=== PATIENT | male | born 1955 | race Caucasian/White ===

== ENCOUNTER 2016-08-06 14:52 | Emergency (ER) | payer OTHER ==
--- NOTE | 2016-08-06 15:40 | DIAGNOSTIC IMAGING REPORT ---
PROCEDURE: CT HEAD WITHOUT CONTRAST INDICATION: TRAUMA/INJURY TECHNIQUE: Axial CT images were acquired through the head. Coronal and sagittal reformations were created. COMPARISON: None. FINDINGS: No intracranial hemorrhage or extraaxial fluid collections. Ventricles are normal in size, shape and position. There is no mass, mass effect or midline shift. The salguero-white matter differentiation is normal. There is no edema. The calvarium is intact. The paranasal sinuses and mastoid air cells are normally aerated. The extracranial soft tissues and orbits are normal. IMPRESSION: 1. No CT evidence of acute intracranial process. 2. Findings discussed with Jodi at 03:[address] scans at this facility use dose modulation, iterative reconstruction, and/or weight-based dosing when appropriate to reduce radiation dose to as low as reasonably achievable.
--- NOTE | 2016-08-06 15:43 | DIAGNOSTIC IMAGING REPORT ---
PROCEDURE: XR CHEST 2 VIEW INDICATION: CHEST PAIN TECHNIQUE: PA and lateral views. COMPARISON: None. FINDINGS: Lungs are clear. Heart and mediastinum are normal. Thorax is normal. IMPRESSION: 1. Negative chest.
--- NOTE | 2016-08-06 15:59 | DIAGNOSTIC IMAGING REPORT ---
PROCEDURE: XR CERVICAL SPINE 2 OR 3 VIEW INDICATION: NECK PAIN TECHNIQUE: Three views. COMPARISON: None. FINDINGS: There is spondylosis at C 5-6 and C6-7. There is a large posterior osteophytic ridge at C 05/06. No evidence of an acute process or fracture. IMPRESSION: 1. Spondylosis C5-6
--- NOTE | 2016-08-06 17:21 | ED ORDER SUMMARY ---
..... Patient: AISLINN HANSEN OrderSheet [facility] VisitID: [id number] [place] [address] 60y, M Registration Date/Time: 08/06/2016 ORDER SHEET Weight: 85.7 kg (stated) Allergies: None GENERAL ORDERS: CT Head wo Cont Urgent (15:08/06/2016 EKoroleva P.A.-C) (Ack 15:06 LMuller) (15:17 EHassan R.N.) Cervical Spine 2 or 3V Urgent (15:05 08/06/2016 EKoroleva P.A.-C) (Ack 15:06 LMuller) (15:17 EHassan R.N.) Chest 2V Urgent (15:08/06/2016 EKoroleva P.A.-C) (Ack 15:07 LMuller) (15:17 EHassan R.N.) Financial Aid Advisor (Continuous) (15:06 08/06/2016 EKoroleva P.A.-C) (Ack 15:07 LMuller) (15:17 EHassan R.N.) PT with INR Urgent (15:06 08/06/2016 EKoroleva P.A.-C) (Ack 15:07 LMuller) (15:17 EHassan R.N.) PTT Urgent (15:08/06/2016 EKoroleva P.A.-C) (Ack 15:07 LMuller) (15:17 EHassan R.N.) Cardiac Panel Stat (15:06 08/06/2016 EKoroleva P.A.-C) (Ack 15:07 LMuller) (15:17 EHassan R.N.) EKG - ER Stat (15:08/06/2016 EKoroleva P.A.-C) (Ack 15:07 LMuller) (15:17 EHassan R.N.) Vitals - Orthostatic (16:59 08/06/2016 EKoroleva P.A.-C) (18:24 EHassan R.N.) MEDICATION ORDERS: Tdap IM 0.5 mL (NOW, per protocol) (15:06 08/06/2016 Carl Quezada) (15:49 Doc Coronado) IV FLUIDS: IV Saline Lock (15:08/06/2016 Carl Quezada) (15:47 Doc Coronado) ORDER SHEET NOTES: [Electronically signed by Gloria Zapata P.A.-C (18:08/06/2016)] [Electronically signed by Gracy Madison R.N. (18:08/06/2016)] [Electronically locked/signed by Gracy Madison R.N. (18:08/06/2016)]
--- NOTE | 2016-08-06 17:21 | ED NURSING NOTES ---
Clinical Report - Nurses [facility] [address] [place] [address] 08/06/2016 14:53 Patient: AISLINN HANSEN TRIAGE Triage time 1500 PM. Acuity: LEVEL 2. Chief Complaint: INJURY TO NOSE. Alert. No acute distress. SEPSIS SCREEN: Sepsis Screen. Negative (no infection suspected/documented). --15:20 Gracy Madison R.N. 15:00 08/06/16. BP: 182/101. HR: 95. RR: 15. O2 saturation: 94% on room air. Temp: 98 F (oral). Pain level now: 4/10. Additional comments: right knee pain. --15:20 Gracy Madison R.N. Weight: 85.7 kg stated. Height/Length: 72 inches Per Patient. BMI: 25.6. --15:08 Gracy Madison R.N. Medications Depakote Oral 2000 mg, at bedtime. Neurontin Oral 600 mg, 2x a day. Propranolol HCl 80 mg, daily. --15:04 Gracy Madison R.N. The following entry was struck by Gracy Madison R.N., 15:14 (08/06/16) Reason - other. <<STRICKEN ENTRY-- Glimepiride Oral 4 mg, bid. --15:04 Gracy Madison R.N. --END STRIKE>> The following entry was struck by Gracy Madison R.N., 15:13 (08/06/16) Reason - other. <<STRICKEN ENTRY-- MetFORMIN HCl Oral 1000 mg, 2x a day. --15:04 Gracy Madison R.N. --END STRIKE>> The following entry was struck by Gracy Madison R.N., 15:13 (08/06/16) Reason - other. <<STRICKEN ENTRY-- Hydrocodone-Acetaminophen Oral 5 mg, 5 times aday. --15:04 Gracy Madison R.N. --END STRIKE>>. Medication/allergy information source: the patient. --15:20 Gracy Madison R.N. Allergies None. --15:04 Gracy Madison R.N. History Arrived by EMS, and being carried ([place]). Historian: patient. ( Pt arrived via EMS, according to pt he was walking on trail and felt weak and fell, denies LOC, does admit to right knee pain, and nose pain (bridge of nose with a laceration)). This occurred today. Occurred ([place]). Mechanism of injury: fell. No loss of consciousness. No headache or neck pain. Treatment PHARMACY AFFAIRS ASSISTANT: None. EMS report reviewed. See report. Finger stick glucose performed (124). BP: 162/ 102 R arm (reg adult cuff). HR: 106 regular. RR: 18 regular. O2 saturation: 100 % room air. Upon arrival patient awake. bus monitor and O2 sat monitor in place. No medications given. PAST MEDICAL HX: Tetanus status: up-to-date. Immunizations: up-to-date. SOCIAL HX: Never smoker. No alcohol use or drug use. No infectious disease exposure. ABUSE ASSESSMENT: No report of abuse. SELF HARM ASSESSMENT: A self harm assessment was performed. The patient answered "no" to the question "Do you have thoughts of harming or killing yourself?" and "Have you recently had thoughts about harming or killing others?". FALL RISK ASSESSMENT: Fall risk assessment completed. No fall risk identified. NUTRITIONAL RISK ASSESSMENT: The nutritional risk assessment revealed no deficiencies. FUNCTIONAL ASSESSMENT: Functional assessment: no impairments noted. LEARNING NEEDS ASSESSMENT: The learning needs assessment revealed no barriers. SKIN INTEGRITY ASSESSMENT: Skin integrity risk assessment completed. No skin integrity risk identified. --15:20 Gracy Madison R.N. PROBLEMS: Laceration. Hypertension. Immunizations. Bipolar Disorder. Diabetes Mellitus. --15:04 Gracy Madison R.N. ADDITIONAL SURGERIES: Eye surgery. Rhinoplasty. --15:04 Gracy Madison R.N. Interventions ID band on patient. --15:20 Gracy Madison R.N. PHYSICAL ASSESSMENT GENERAL / NEURO / PSYCH: Alert. Oriented X 4. Appears in no acute distress. HEENT: Pupils equal, round and reactive to light. Nasal injury: superficial 0.5 cm laceration with controlled bleeding involving the bridge of the nose. No septal hematoma or deformity. Nose: tenderness, swelling and 0.5 cm laceration. No deformity. Mouth within normal limits upon inspection. Voice within normal limits. Posterior neck: tenderness. Limited ROM secondary to pain. No deformity. Mucous membranes are pink. RESPIRATORY: Respirations not labored. CVS: Capillary refill less than 2 seconds. BACK: No neck or back tenderness. ROM normal to the neck and back. SKIN: Skin is warm and dry. --15:23 Gracy Madison R.N. NURSING PROGRESS NOTES Cardiac rhythm: normal sinus rhythm. The initial plan of care for this patient has been created This plan of care was discussed with the patient. Pulse oximeter applied. Patient gowned. Warming measures: blanket applied. Reassurance given and given. Two patient identifiers checked. Call light placed in reach. Side rails up x 2. Bed placed in lowest position. Brakes of bed on. Brakes of chair on. --15:26 Gracy Madison R.N. 15:15 08/06/16. BP: 152/100 (regular adult cuff) taken on the left arm, via an automated monitor, while lying. HR: 89 (regular and normal rate). RR: 16 (regular and unlabored). O2 saturation: 95% on room air. Pain level now: 09/20. --15:26 Gracy Madison R.N. Patient transported to radiology and CT by stretcher. (0040). --15:30 Gracy Madiosn R.N. 15:47 08/06/2016 Site #1 started via IV in the right forearm with an 20g angiocath; one attempt. Blood drawn: rainbow set. Labeled in the presence of the patient and sent to the lab. Saline lock flushed with 10 mL saline. --15:47 Gracy Madison R.N. 15:47 08/06/2016 TDAP IM 0.5 mL given. Given in the right deltoid. Allergies verified and confirmed 5 rights. Vaccine information statement provided to the patient. --15:49 Gracy Madison R.N. EKG time: (2463). EKG was shown to the PA. ( EKG DONE BY RT). --15:51 Jackelyn Benítez 15:30 08/06/16. BP: 154/87 (regular adult cuff) taken on the left arm, via an automated monitor, while sitting. HR: 87. RR: 14. O2 saturation: 95% on room air. O2 started via nasal cannula. Pain level now: 09/20. --16:06 Gracy Madison R.N. late entry - 15:30 PM. Reassurance given. The patient is calm and resting quietly. GENERAL / NEURO / PSYCH: Denies headache. GI / : Denies nausea. Patient returned from CT by stretcher. Two patient identifiers checked. Call light placed in reach. Side rails up x 2. Brakes of bed on. Brakes of chair on. --16:06 Gracy Madison R.N. 16:49 08/06/16. ( Steri strips allied to nose). --16:49 Summer Tai 17:02 08/06/16. BP: 164/79 (regular adult cuff) taken on the left arm, via an automated monitor, while sitting. HR: 84. RR: 19. O2 saturation: 97%. Pain level now: 09/20. Additional comments: right knee pain. --17:04 Gracy Madison R.N. Cardiac rhythm: normal sinus rhythm. The patient reports no complaints, he is calm and resting quietly and he has had no adverse reaction. Overall patient status is improved- he states feels better. GENERAL / NEURO / PSYCH: Denies headache. Alert. Oriented X 4. CVS: Capillary refill less than 2 seconds. SKIN: Skin is warm and dry. --17:04 Gracy Madison R.N. 17:04 08/06/16. BP: 157/83 (regular adult cuff) taken on the left arm, via an automated monitor, while standing. HR: 81. RR: 13. O2 saturation: 98% on room air. --17:05 Gracy Madison R.N. Cardiac rhythm: normal sinus rhythm. --17:05 Gracy Madison R.N. Reassurance given. ( Pt assisted with walking to BR, a bit unsteady, denied any dizziness, SOB, H/A, N/V. tolerated well. Voided without difficulty). Patient identifiers checked. Call light placed in reach. Side rails up x 2. Bed placed in lowest position. Brakes of bed on. Brakes of chair on. --17:10 Gracy Madison R.N. 17:08 08/06/16. BP: 136/80 (regular adult cuff) taken on the left arm, via an automated monitor, while lying. HR: 83. RR: 17. O2 saturation: 98% on room air. --17:10 Gracy Madison R.N. ( steri stips applied to nose.). --17:22 Hieu Shipley R.N. 17:24 08/06/2016 TDAP IM Response: no adverse reaction. --18:24 Gracy Madison R.N. 18:14 08/06/2016 Site #1 removed upon discharge. Catheter intact. Manual pressure and bandaid applied. --18:24 Gracy Madison R.N. DISPOSITION / DISCHARGE Cardiac rhythm: normal sinus rhythm. Departure time: 1826 PM. Condition at departure: improved and stable. The goals identified in the patient's plan of care were met. No learning barriers present. Discharge instructions provided and reviewed with the patient. Reviewed wound care instructions. Reviewed referrals for followup (Follow-up with pt primary doctor). Activity restrictions (rest) reviewed. Patient verbalized understanding. Written instructions provided in Japanese. ( understands all instructions and wound care). No warning instructions, medication instructions or diet instructions. The patient was discharged by the physician promotional advertising assistant. He was discharged home and accompanied by family. He left the Emergency Department ambulatory and via private vehicle. Family member driving. ( Son is picking him up, pt accompanied to WR to wait). DO COMA SCORE: [place] Coma Scale: 15- eyes open spontaneously (4); best verbal response- oriented x 4 (5); best motor response- obeys commands (6). --18:28 Gracy Madison R.N. 18:15 08/06/16. BP: 136/80 (regular adult cuff) taken on the left arm, via an automated monitor, while standing. HR: 92 (regular and normal rate). RR: 15. O2 saturation: 100%. Temp: 97.7 F (oral). Pain level now: 0/10. --18:28 Gracy Madison R.N. Locked/Released at 08/06/2016 18:28 by Gracy Madison R.N.
--- NOTE | 2016-08-06 17:21 | ED ORDER SUMMARY ---
..... Patient: AISLINN HANSEN OrderSheet [facility] VisitID: [id number] [place] [address] 60y, M Registration Date/Time: 08/06/2016 ORDER SHEET Weight: 85.7 kg (stated) Allergies: None GENERAL ORDERS: CT Head wo Cont Urgent (15:08/06/2016 EKoroleva P.A.-C) (Ack 15:06 LMuller) (15:17 EHassan R.N.) Cervical Spine 2 or 3V Urgent (15:05 08/06/2016 EKoroleva P.A.-C) (Ack 15:06 LMuller) (15:17 EHassan R.N.) Chest 2V Urgent (15:08/06/2016 EKoroleva P.A.-C) (Ack 15:07 LMuller) (15:17 EHassan R.N.) Director Of Corporate Responsibility (Continuous) (15:06 08/06/2016 EKoroleva P.A.-C) (Ack 15:07 LMuller) (15:17 EHassan R.N.) PT with INR Urgent (15:06 08/06/2016 EKoroleva P.A.-C) (Ack 15:07 LMuller) (15:17 EHassan R.N.) PTT Urgent (15:08/06/2016 EKoroleva P.A.-C) (Ack 15:07 LMuller) (15:17 EHassan R.N.) Cardiac Panel Stat (15:06 08/06/2016 EKoroleva P.A.-C) (Ack 15:07 LMuller) (15:17 EHassan R.N.) EKG - ER Stat (15:08/06/2016 EKoroleva P.A.-C) (Ack 15:07 LMuller) (15:17 EHassan R.N.) Vitals - Orthostatic (16:59 08/06/2016 EKoroleva P.A.-C) (18:24 EHassan R.N.) MEDICATION ORDERS: Tdap IM 0.5 mL (NOW, per protocol) (15:06 08/06/2016 Carl Quezada) (15:49 Doc Coronado) IV FLUIDS: IV Saline Lock (15:08/06/2016 Carl Quezada) (15:47 Doc Coronado) ORDER SHEET NOTES: [Electronically signed by Gloria Zapata P.A.-C (18:08/06/2016)] [Electronically signed by Gracy Madison R.N. (18:08/06/2016)] [Electronically locked/signed by Gracy Madison R.N. (18:08/06/2016)]
--- NOTE | 2016-08-06 17:21 | ED CLINICAL REPORT ---
Clinical Report - Physicians/Mid Levels [facility] [address] [place] [address] 08/06/2016 14:53 Patient: AISLINN HANSEN Time Seen: 15:06 Aug 06 2016. Arrived- By ambulance. Historian- EMS personnel. HISTORY OF PRESENT ILLNESS Chief Complaint: FALL. Location of injuries- (head/ nose). The injury occurred just prior to arrival. Fell. Occurred on a street. The patient complains of mild pain. The patient sustained a blow to the head and complains of neck pain. No loss of consciousness. Not dazed. (Fell today while walking outside, lost balance. Reports this has been occurring over last 4 days, since he started a new medication. Pt had no preceeding sob/ chest pain.). REVIEW OF SYSTEMS No loss of vision, abdominal pain or laceration. He has had a headache but no pain on weight bearing. All systems otherwise negative, except as recorded above. SOCIAL HISTORY Never smoker. No alcohol use or drug use. ADDITIONAL NOTES The nursing notes have been reviewed. PHYSICAL EXAM Vital Signs: 08/06/2016 15:00 BP: 182/101. HR: 95. RR: 15. O2 saturation: 94%. Temp: 98 F. Pain level now: 4/10. Appearance: Alert. No backboard or C-collar. Head: Head non-tender. No swelling of head. Eyes: Pupils equal, round and reactive to light. EOM intact. Right periorbital area: No tenderness or swelling. Left periorbital area: No tenderness or swelling. ENT: Nose: small abrasion. No puncture wound. No septal hematoma. Neck: Painless ROM. Non-tender. Posterior neck: No tenderness or swelling. CVS: Heart sounds normal. Respiratory: Breath sounds normal. Chest nontender. No chest wall injury or decreased breath sounds. Abdomen: No visible injury. Soft. Back: No tenderness. ROM normal. No tenderness or vertebral point tenderness. Extremities: Normal inspection. Pelvis stable. Neuro: [place] Coma Scale: 15- eyes open spontaneously (4); best verbal response- oriented x 3 (5); best motor response- obeys commands (6). Oriented X 3. No alteration in mental status. No motor deficit. LABS, X-RAYS, AND EKG EKG: EKG time: (1542). No acute process. Rate: 89. Normal P waves. Normal LESLIE. Normal QRS complex. Normal axis. Normal ST and T waves and QT. C-Spine X-rays: (IMPRESSION: 1. Spondylosis C5-6 Electronically Final signed by:Moisés Hardin MD 08/06/2016 4:03:02 PM). Chest X-ray: (IMPRESSION: 1. Negative chest. Electronically Final signed by:Moisés Hardin MD 08/06/2016 3:47:15 PM). CT Head: (IMPRESSION: 1. No CT evidence of acute intracranial process. 2. Findings discussed with Jodi at 03:[address] scans at this facility use dose modulation, iterative reconstruction, and/or weight-based dosing when appropriate to reduce radiation dose to as low as reasonably achievable. Electronically Final signed by:Moisés Hardin MD 08/06/2016 3:44:15 PM). Laboratory Tests: CBC w Diff: (SLAOMON: 08/06/2016 15:45) ( MsgRcvd 08/06/2016 16:17) Final results Test Result Flag Units (Reference) WHITE BLOOD COUNT 4.7 K/uL (4.5-11.5) RED BLOOD COUNT 5.17 M/uL (4.50-5.90) HEMOGLOBIN 15.5 gm/dL (13.5-17.5) HEMATOCRIT 46.8 % (41.0-53.0) MEAN CELL VOLUME 90 fL (80-100) MEAN CORPUSCULAR HGB 30 pg (26-34) MEAN CORPUSCULAR HGB CONC 33 g/dL (31-37) RED CELL DISTRIBUTION WIDTH 13.1 % (11.6-14.8) PLATELET COUNT 134 L K/uL (150-400) NEUTROPHIL % 65.1 % (50-75) LYMPH % 23.9 L % (25-40) MONO % 9.6 % (3-14) EOSINOPHIL % 1.0 % (0-4) BASOPHIL % 0.4 % (0-2) PT with INR: (SALOMON: 08/06/2016 15:45) ( [facility] [place] 08/06/[place] 16:19) Final results Test Result Flag Units (Reference) INR 1.1 (0.8-1.2) Low Intensity Therapy: INR 1.5-2.0 PT range 18.5-23.1Mod.Intensity Therapy: INR 2.0-3.0 PT range 23.1-31.5High Intensity Therapy: INR 2.5-3.5 PT range 27.4-35.5High Intensity Therapy 2: INR 3.0-4.0 PT range 31.5-39.3 APTT 34 SECONDS (24-34) CHEM 13 PANEL: (SALOMON: 08/06/2016 15:45) ( MigRcvd 08/06/2016 16:18) Final results Test Result Flag Units (Reference) GLUCOSE 128 H mg/dL (70-110) BUN 12 mg/dL (7-18) CREATININE 1.3 mg/dL (0.6-1.3) Estimated GFR 59.45 mL/min Estimated GFR- >60 mL/min Note: Persistent reduction over 3 months in eGFR<60 mL/min/1.73 m2 defines CKD. Patients with eGFR values>=60 mL/min/1.73 m2 may also have CKD if evidence ofpersistent proteinuria. Additional information may be foundat www.kidney.org. SODIUM 141 mmol/L (136-145) POTASSIUM 3.9 mmol/L (3.5-5.1) CHLORIDE 102 mmol/L (98-107) CARBON DIOXIDE 25 mmol/L (21-32) CALCIUM 9.1 mg/dL (8.5-10.1) TOTAL PROTEIN 7.6 g/dL (6.4-8.2) ALBUMIN 4.3 g/dL (3.3-5.0) BILIRUBIN, TOTAL 1.2 H mg/dL (0.0-1.0) ALKALINE PHOSPHATASE 94 U/L (46-116) AST (SGOT) 29 U/L (15-37) ALT (SGPT) 39 U/L (12-78) MAGNESIUM 2.0 mg/dL (1.8-2.4) CPK 163 U/L (24-260) TROPONIN I <0.05 ng/mL (0.00-1.5) TROPONIN REFERENCE RANGE:<0.1 NEGATIVE0.1-1.5 INDETERMINANT>1.5 POSITIVE . PROGRESS AND PROCEDURES Course of Care: Reviewed recent med list/ record from pcp as well as psychiatry, only new obvious med is zolpidem. Discussed that his new med may be causing him sx, and patient agrees. Pt stable. Pt to f/u outpatient. 08/06/2016 17:08 BP: 136/80. HR: 83. RR: 17. O2 saturation: 98%. 08/06/2016 17:04 BP: 157/83. HR: 81. RR: 13. O2 saturation: 98%. 08/06/2016 17:02 BP: 164/79. HR: 84. RR: 19. O2 saturation: 97%. Pain level now: 09/20. 08/06/2016 15:30 BP: 154/87. HR: 87. RR: 14. O2 saturation: 95%. Pain level now: 10. Patient is stable. Symptoms better. Patient/family counseled. Differential Diagnosis: I considered muscle strain, pleurisy, intercostal neuritis, myocardial infarction, intermediate coronary syndrome, aortic dissection, pulmonary embolism and gastroesophageal reflux disease as a possible cause of chest pain in this patient. This is a partial list of diagnoses considered. Disposition: Discharged. CLINICAL IMPRESSION Single superficial abrasion to the nose. Fall on same level by stumbling. INSTRUCTIONS Protect wound and keep wound area clean. Apply bacitracin twice daily. (stop taking your new medications, and follow up with your dr in next 3 days this new medication appears to be zolpidem , only new med started on the from your psychiatrist). Follow-up: Follow up with your doctor in three days. (Electronically signed by Gloria Zapata P.A.-C 08/06/2016 18:07)
--- NOTE | 2016-08-06 17:21 | ED CLINICAL REPORT ---
Clinical Report - Physicians/Mid Levels [facility] [address] [address] 08/06/2016 14:53 Patient: AISLINN HANSEN Time Seen: 15:06 Aug 06 2016. Arrived- By ambulance. Historian- EMS personnel. HISTORY OF PRESENT ILLNESS Chief Complaint: FALL. Location of injuries- (head/ nose). The injury occurred just prior to arrival. Fell. Occurred on a street. The patient complains of mild pain. The patient sustained a blow to the head and complains of neck pain. No loss of consciousness. Not dazed. (Fell today while walking outside, lost balance. Reports this has been occurring over last 4 days, since he started a new medication. Pt had no preceeding sob/ chest pain.). REVIEW OF SYSTEMS No loss of vision, abdominal pain or laceration. He has had a headache but no pain on weight bearing. All systems otherwise negative, except as recorded above. SOCIAL HISTORY Never smoker. No alcohol use or drug use. ADDITIONAL NOTES The nursing notes have been reviewed. PHYSICAL EXAM Vital Signs: 08/06/2016 15:00 BP: 182/101. HR: 95. RR: 15. O2 saturation: 94%. Temp: 98 F. Pain level now: 4/10. Appearance: Alert. No backboard or C-collar. Head: Head non-tender. No swelling of head. Eyes: Pupils equal, round and reactive to light. EOM intact. Right periorbital area: No tenderness or swelling. Left periorbital area: No tenderness or swelling. ENT: Nose: small abrasion. No puncture wound. No septal hematoma. Neck: Painless ROM. Non-tender. Posterior neck: No tenderness or swelling. CVS: Heart sounds normal. Respiratory: Breath sounds normal. Chest nontender. No chest wall injury or decreased breath sounds. Abdomen: No visible injury. Soft. Back: No tenderness. ROM normal. No tenderness or vertebral point tenderness. Extremities: Normal inspection. Pelvis stable. Neuro: [place] Coma Scale: 15- eyes open spontaneously (4); best verbal response- oriented x 3 (5); best motor response- obeys commands (6). Oriented X 3. No alteration in mental status. No motor deficit. LABS, X-RAYS, AND EKG EKG: EKG time: (1542). No acute process. Rate: 89. Normal P waves. Normal LESLIE. Normal QRS complex. Normal axis. Normal ST and T waves and QT. C-Spine X-rays: (IMPRESSION: 1. Spondylosis C5-6 Electronically Final signed by:Moisés Hardin MD 08/06/2016 4:03:02 PM). Chest X-ray: (IMPRESSION: 1. Negative chest. Electronically Final signed by:Moisés Hardin MD 08/06/2016 3:47:15 PM). CT Head: (IMPRESSION: 1. No CT evidence of acute intracranial process. 2. Findings discussed with Jodi at 03:[address] scans at this facility use dose modulation, iterative reconstruction, and/or weight-based dosing when appropriate to reduce radiation dose to as low as reasonably achievable. Electronically Final signed by:Moisés Hardin MD 08/06/2016 3:44:15 PM). Laboratory Tests: CBC w Diff: (SALOMON: 08/06/2016 15:45) ( MsgRcvd 08/06/2016 16:17) Final results Test Result Flag Units (Reference) WHITE BLOOD COUNT 4.7 K/uL (4.5-11.5) RED BLOOD COUNT 5.17 M/uL (4.50-5.90) HEMOGLOBIN 15.5 gm/dL (13.5-17.5) HEMATOCRIT 46.8 % (41.0-53.0) MEAN CELL VOLUME 90 fL (80-100) MEAN CORPUSCULAR HGB 30 pg (26-34) MEAN CORPUSCULAR HGB CONC 33 g/dL (31-37) RED CELL DISTRIBUTION WIDTH 13.1 % (11.6-14.8) PLATELET COUNT 134 L K/uL (150-400) NEUTROPHIL % 65.1 % (50-75) LYMPH % 23.9 L % (25-40) MONO % 9.6 % (3-14) EOSINOPHIL % 1.0 % (0-4) BASOPHIL % 0.4 % (0-2) PT with INR: (SALOMON: 08/06/2016 15:45) ( [facility] 08/06/2016 16:19) Final results Test Result Flag Units (Reference) INR 1.1 (0.8-1.2) Low Intensity Therapy: INR 1.5-2.0 PT range 18.5-23.1Mod.Intensity Therapy: INR 2.0-3.0 PT range 23.1-31.5High Intensity Therapy: INR 2.5-3.5 PT range 27.4-35.5High Intensity Therapy 2: INR 3.0-4.0 PT range 31.5-39.3 APTT 34 SECONDS (24-34) CHEM 13 PANEL: (SALOMON: 08/06/2016 15:45) ( IlgRcvd 08/06/2016 16:18) Final results Test Result Flag Units (Reference) GLUCOSE 128 H mg/dL (70-110) BUN 12 mg/dL (7-18) CREATININE 1.3 mg/dL (0.6-1.3) Estimated GFR 59.45 mL/min Estimated GFR- >60 mL/min Note: Persistent reduction over 3 months in eGFR<60 mL/min/1.73 m2 defines CKD. Patients with eGFR values>=60 mL/min/1.73 m2 may also have CKD if evidence ofpersistent proteinuria. Additional information may be foundat www.kidney.org. SODIUM 141 mmol/L (136-145) POTASSIUM 3.9 mmol/L (3.5-5.1) CHLORIDE 102 mmol/L (98-107) CARBON DIOXIDE 25 mmol/L (21-32) CALCIUM 9.1 mg/dL (8.5-10.1) TOTAL PROTEIN 7.6 g/dL (6.4-8.2) ALBUMIN 4.3 g/dL (3.3-5.0) BILIRUBIN, TOTAL 1.2 H mg/dL (0.0-1.0) ALKALINE PHOSPHATASE 94 U/L (46-116) AST (SGOT) 29 U/L (15-37) ALT (SGPT) 39 U/L (12-78) MAGNESIUM 2.0 mg/dL (1.8-2.4) CPK 163 U/L (24-260) TROPONIN I <0.05 ng/mL (0.00-1.5) TROPONIN REFERENCE RANGE:<0.1 NEGATIVE0.1-1.5 INDETERMINANT>1.5 POSITIVE . PROGRESS AND PROCEDURES Course of Care: Reviewed recent med list/ record from pcp as well as psychiatry, only new obvious med is zolpidem. Discussed that his new med may be causing him sx, and patient agrees. Pt stable. Pt to f/u outpatient. 08/06/2016 17:08 BP: 136/80. HR: 83. RR: 17. O2 saturation: 98%. 08/06/2016 17:04 BP: 157/83. HR: 81. RR: 13. O2 saturation: 98%. 08/06/2016 17:02 BP: 164/79. HR: 84. RR: 19. O2 saturation: 97%. Pain level now: 09/20. 08/06/2016 15:30 BP: 154/87. HR: 87. RR: 14. O2 saturation: 95%. Pain level now: 10. Patient is stable. Symptoms better. Patient/family counseled. Differential Diagnosis: I considered muscle strain, pleurisy, intercostal neuritis, myocardial infarction, intermediate coronary syndrome, aortic dissection, pulmonary embolism and gastroesophageal reflux disease as a possible cause of chest pain in this patient. This is a partial list of diagnoses considered. Disposition: Discharged. CLINICAL IMPRESSION Single superficial abrasion to the nose. Fall on same level by stumbling. INSTRUCTIONS Protect wound and keep wound area clean. Apply bacitracin twice daily. (stop taking your new medications, and follow up with your dr in next 3 days this new medication appears to be zolpidem , only new med started on the from your psychiatrist). Follow-up: Follow up with your doctor in three days. (Electronically signed by Gloria Zapata P.A.-C 08/06/2016 18:07)
--- NOTE | 2016-08-06 17:21 | ED NURSING NOTES ---
Clinical Report - [facility] [address] [place] [address] 08/06/2016 14:53 Patient: AISLINN HANSEN TRIAGE Triage time 1500 PM. Acuity: LEVEL 2. Chief Complaint: INJURY TO NOSE. Alert. No acute distress. SEPSIS SCREEN: Sepsis Screen. Negative (no infection suspected/documented). --15:20 Gracy Madison R.N. 15:00 08/06/16. BP: 182/101. HR: 95. RR: 15. O2 saturation: 94% on room air. Temp: 98 F (oral). Pain level now: 4/10. Additional comments: right knee pain. --15:20 Gracy Madison R.N. Weight: 85.7 kg stated. Height/Length: 72 inches Per Patient. BMI: 25.6. --15:08 Gracy Madison R.N. Medications Depakote Oral 2000 mg, at bedtime. Neurontin Oral 600 mg, 2x a day. Propranolol HCl 80 mg, daily. --15:04 Gracy Madison R.N. The following entry was struck by Gracy Madison R.N., 15:14 (08/06/16) Reason - other. <<STRICKEN ENTRY-- Glimepiride Oral 4 mg, bid. --15:04 Gracy Madison R.N. --END STRIKE>> The following entry was struck by Gracy Madison R.N., 15:13 (08/06/16) Reason - other. <<STRICKEN ENTRY-- MetFORMIN HCl Oral 1000 mg, 2x a day. --15:04 Gracy Madison R.N. --END STRIKE>> The following entry was struck by Gracy Madison R.N., 15:13 (08/06/16) Reason - other. <<STRICKEN ENTRY-- Hydrocodone-Acetaminophen Oral 5 mg, 5 times aday. --15:04 Gracy Madison R.N. --END STRIKE>>. Medication/allergy information source: the patient. --15:20 Gracy Madison R.N. Allergies None. --15:04 Gracy Madison R.N. History Arrived by EMS, and being carried ([place]). Historian: patient. ( Pt arrived via EMS, according to pt he was walking on trail and felt weak and fell, denies LOC, does admit to right knee pain, and nose pain (bridge of nose with a laceration)). This occurred today. Occurred ([place]). Mechanism of injury: fell. No loss of consciousness. No headache or neck pain. 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 EMS report reviewed. See report. Finger stick glucose performed (124). BP: 162/ 102 R arm (reg adult cuff). HR: 106 regular. RR: 18 regular. O2 saturation: 100 % room air. Upon arrival patient awake. [facility] and O2 sat monitor in place. No medications given. PAST MEDICAL HX: Tetanus status: up-to-date. Immunizations: up-to-date. SOCIAL HX: Never smoker. No alcohol use or drug use. No infectious disease exposure. ABUSE ASSESSMENT: No report of abuse. SELF HARM ASSESSMENT: A self harm assessment was performed. The patient answered "no" to the question "Do you have thoughts of harming or killing yourself?" and "Have you recently had thoughts about harming or killing others?". FALL RISK ASSESSMENT: Fall risk assessment completed. No fall risk identified. NUTRITIONAL RISK ASSESSMENT: The nutritional risk assessment revealed no deficiencies. FUNCTIONAL ASSESSMENT: Functional assessment: no impairments noted. LEARNING NEEDS ASSESSMENT: The learning needs assessment revealed no barriers. SKIN INTEGRITY ASSESSMENT: Skin integrity risk assessment completed. No skin integrity risk identified. --15:20 Gracy Madison R.N. PROBLEMS: Laceration. Hypertension. Immunizations. Bipolar Disorder. Diabetes Mellitus. --15:04 Gracy Madison R.N. ADDITIONAL SURGERIES: Eye surgery. Rhinoplasty. --15:04 Gracy Madison R.N. Interventions ID band on patient. --15:20 Gracy Madison R.N. PHYSICAL ASSESSMENT GENERAL / NEURO / PSYCH: Alert. Oriented X 4. Appears in no acute distress. HEENT: Pupils equal, round and reactive to light. Nasal injury: superficial 0.5 cm laceration with controlled bleeding involving the bridge of the nose. No septal hematoma or deformity. Nose: tenderness, swelling and 0.5 cm laceration. No deformity. Mouth within normal limits upon inspection. Voice within normal limits. Posterior neck: tenderness. Limited ROM secondary to pain. No deformity. Mucous membranes are pink. RESPIRATORY: Respirations not labored. CVS: Capillary refill less than 2 seconds. BACK: No neck or back tenderness. ROM normal to the neck and back. SKIN: Skin is warm and dry. --15:23 Gracy Madison R.N. NURSING PROGRESS NOTES Cardiac rhythm: normal sinus rhythm. The initial plan of care for this patient has been created This plan of care was discussed with the patient. Pulse oximeter applied. Patient gowned. Warming measures: blanket applied. Reassurance given and given. Two patient identifiers checked. Call light placed in reach. Side rails up x 2. Bed placed in lowest position. Brakes of bed on. Brakes of chair on. --15:26 Gracy Madison R.N. 15:15 08/06/16. BP: 152/100 (regular adult cuff) taken on the left arm, via an automated monitor, while lying. HR: 89 (regular and normal rate). RR: 16 (regular and unlabored). O2 saturation: 95% on room air. Pain level now: 09/20. --15:26 Gracy Madison R.N. Patient transported to radiology and CT by stretcher. (4500). --15:30 Gracy Madison R.N. 15:47 08/06/2016 Site #1 started via IV in the right forearm with an 20g angiocath; one attempt. Blood drawn: rainbow set. Labeled in the presence of the patient and sent to the lab. Saline lock flushed with 10 mL saline. --15:47 Gracy Madison R.N. 15:47 08/06/2016 TDAP IM 0.5 mL given. Given in the right deltoid. Allergies verified and confirmed 5 rights. Vaccine information statement provided to the patient. --15:49 Gracy Madison R.N. EKG time: (5834). EKG was shown to the PA. ( EKG DONE BY RT). --15:51 Jackelyn Benítez 15:30 08/06/16. BP: 154/87 (regular adult cuff) taken on the left arm, via an automated monitor, while sitting. HR: 87. RR: 14. O2 saturation: 95% on room air. O2 started via nasal cannula. Pain level now: 09/20. --16:06 Gracy Madison R.N. late entry - 15:30 PM. Reassurance given. The patient is calm and resting quietly. GENERAL / NEURO / PSYCH: Denies headache. GI / : Denies nausea. Patient returned from CT by stretcher. Two patient identifiers checked. Call light placed in reach. Side rails up x 2. Brakes of bed on. Brakes of chair on. --16:06 Gracy Madison R.N. 16:49 08/06/16. ( Steri strips allied to nose). --16:49 Summer Tai 17:02 08/06/16. BP: 164/79 (regular adult cuff) taken on the left arm, via an automated monitor, while sitting. HR: 84. RR: 19. O2 saturation: 97%. Pain level now: 09/20. Additional comments: right knee pain. --17:04 Gracy Madison R.N. Cardiac rhythm: normal sinus rhythm. The patient reports no complaints, he is calm and resting quietly and he has had no adverse reaction. Overall patient status is improved- he states feels better. GENERAL / NEURO / PSYCH: Denies headache. Alert. Oriented X 4. CVS: Capillary refill less than 2 seconds. SKIN: Skin is warm and dry. --17:04 Gracy Madison R.N. 17:04 08/06/16. BP: 157/83 (regular adult cuff) taken on the left arm, via an automated monitor, while standing. HR: 81. RR: 13. O2 saturation: 98% on room air. --17:05 Gracy Madison R.N. Cardiac rhythm: normal sinus rhythm. --17:05 Gracy Madison R.N. Reassurance given. ( Pt assisted with walking to BR, a bit unsteady, denied any dizziness, SOB, H/A, N/V. tolerated well. Voided without difficulty). Patient identifiers checked. Call light placed in reach. Side rails up x 2. Bed placed in lowest position. Brakes of bed on. Brakes of chair on. --17:10 Gracy Madison R.N. 17:08 08/06/16. BP: 136/80 (regular adult cuff) taken on the left arm, via an automated monitor, while lying. HR: 83. RR: 17. O2 saturation: 98% on room air. --17:10 Gracy Madison R.N. ( steri stips applied to nose.). --17:22 iHeu Shipley R.N. 17:24 08/06/2016 TDAP IM Response: no adverse reaction. --18:24 Gracy Madison R.N. 18:14 08/06/2016 Site #1 removed upon discharge. Catheter intact. Manual pressure and bandaid applied. --18:24 Gracy Madison R.N. DISPOSITION / DISCHARGE Cardiac rhythm: normal sinus rhythm. Departure time: 1826 PM. Condition at departure: improved and stable. The goals identified in the patient's plan of care were met. No learning barriers present. Discharge instructions provided and reviewed with the patient. Reviewed wound care instructions. Reviewed referrals for followup (Follow-up with pt primary doctor). Activity restrictions (rest) reviewed. Patient verbalized understanding. Written instructions provided in [place]. ( understands all instructions and wound care). No warning instructions, medication instructions or diet instructions. The patient was discharged by the physician chemical laboratory assistant. He was discharged home and accompanied by family. He left the Emergency Department ambulatory and via private vehicle. Family member driving. ( Son is picking him up, pt accompanied to WR to wait). DO COMA SCORE: [place] Coma Scale: 15- eyes open spontaneously (4); best verbal response- oriented x 4 (5); best motor response- obeys commands (6). --18:28 Gracy Madison R.N. 18:15 08/06/16. BP: 136/80 (regular adult cuff) taken on the left arm, via an automated monitor, while standing. HR: 92 (regular and normal rate). RR: 15. O2 saturation: 100%. Temp: 97.7 F (oral). Pain level now: 0/10. --18:28 Gracy Madison R.N. Locked/Released at 08/06/2016 18:28 by Gracy Madison R.N.
--- NOTE | 2016-08-06 18:29 | ED DISCHARGE INSTRUCTIONS ---
Patient: AISLINN HANSEN General Instructions [facility] VisitID: [id number] [place] [address] 60y, M Registration Date/Time: 08/06/2016 Single superficial abrasion to the nose. Fall on same level by stumbling. INSTRUCTIONS Protect wound and keep wound area clean. Apply bacitracin twice daily. (stop taking your new medications, and follow up with your dr in next 3 days this new medication appears to be zolpidem , only new med started on the from your psychiatrist). Follow-up: Follow up with your doctor in three days. ADDITIONAL INFORMATION Mechanical Fall You have had a fall today. It appears that the cause is mechanical. That means that you slipped, tripped or lost your balance. If your fall had been due to fainting or a seizure, further tests would be required. Home Care: Rest today and resume your normal activities when you are feeling back to normal. If you were injured during the fall, follow the advice from your doctor regarding care of your injury. You may use acetaminophen (Tylenol) or ibuprofen (Motrin, Advil) to control pain, unless another pain medicine was prescribed. [NOTE: If you have chronic liver or kidney disease or ever had a stomach ulcer or GI bleeding, talk with your doctor before using these medicines.] Fall Prevention: Was there anything that caused your fall that can be fixed, removed, or replaced? Make your home safe by keeping walkways clear of objects you may trip over. Use non-slip pads under rugs. Do not walk in poorly lit areas. Do not stand on chairs or wobbly ladders. Use caution when reaching overhead or looking upward. This position can cause a loss of balance. Be sure your shoes fit properly, have non-slip bottoms and are in good condition. Be cautious when going up and down curbs, and walking on uneven sidewalks. If your balance is poor, consider using a cane or walker. Stay as active as you can. Balance, flexibility, strength, and endurance all come from exercise. They all play a role in preventing falls. Follow Up with your doctor or as advised by our staff. Get Prompt Medical Attention if any of the following occur: Repeated mechanical falls, or unexplained falls Dizziness, fainting or seizure Severe headache Chest pain or shortness of breath Palpitations (very rapid or very slow or irregular heartbeat) Blood in vomit, stools (black or red color) Weakness of an arm or leg or one side of the face Difficulty with speech or vision Abrasions Abrasions are skin scrapes. Their treatment depends on how large and deep the abrasion is. Home Care: If you were given a bandage, change it once a day. If your bandage sticks to the wound, soak it in warm water until it loosens. Wash the area with soap and water to remove all the cream/ointment. You may do this in a sink, under a tub faucet or shower. Rinse off the soap and pat dry with a clean towel. Reapply cream/ointment according to your doctor's instructions. This will prevent infection and help prevent the bandage from sticking. Cover the wound with a fresh non-stick bandage (Telfa). Repeat steps 1 to 4 daily, or as directed by your doctor. If the bandage becomes wet or dirty, change it as soon as possible. You may use acetaminophen (Tylenol) or ibuprofen (Motrin, Advil) to control pain, unless another pain medicine was prescribed. [ NOTE : If you have chronic liver or kidney disease or ever had a stomach ulcer or GI bleeding, talk with your doctor before using these medicines.] Do not use ibuprofen in children under six months of age. Follow Up with your physician or this facility as directed by our staff. Most skin wounds heal within ten days. However, an infection may occur despite proper treatment. Therefore, look for the early signs of infection listed below. Get Prompt Medical Attention if any of the following occur: Increasing pain in the wound Increasing redness or swelling Pus coming from the wound Fever of 100.4F (38C) or higher, or as directed by your healthcare provider You have been given the following additional information: Fall, Mechanical Abrasion (Electronically signed by Gloria Zapata P.A.-C 08/06/2016 18:07)
--- NOTE | 2016-08-06 18:29 | ED MAR SUMMARY ---
..... Medication Administration Record [facility] [address] [place] [address] Patient: AISLINN HANSEN Visit ID: [id number] 60y, M Weight: 85.7 kg Height/Length: 72 in BMI: 25.6 ALLERGIES: None Given 15:47 08/06/2016 Gracy Madison R.N. Medication Administered: TDAP [IM], Dose: 0.5 mL IM. Medication Ordered: Tdap IM 0.5 mL (NOW, per protocol).
--- NOTE | 2016-08-06 18:29 | ED MED RECONCILIATION SUMMARY ---
Patient: AISLINN HANSEN Medication Reconciliation Report [facility] VisitID: [id number] [address] [place] [address] 60y, M Registration Date/Time: 08/06/2016 Weight: 85.7 kg Height/Length: 72 in. BMI: 25.6 ALLERGIES: None The patient's Home Medications are listed below: THE FOLLOWING MEDICATIONS NEED TO BE RECONCILED: Depakote Oral 2000 mg, at bedtime Neurontin Oral 600 mg, 2x a day Propranolol HCl 80 mg, daily The source(s) of the original Home Medication information: patient The following Medications were given to the patient in the Emergency Department: TDAP [IM] IM 0.5 mL, administered: 08/06/2016 3:47:00 PM The following Medications were prescribed to the patient: None.
--- NOTE | 2016-08-06 18:29 | ED MAR SUMMARY ---
..... Medication Administration Record [facility] [address] [place] [address] Patient: AISLINN HANSEN Visit ID: [id number] 60y, M Weight: 85.7 kg Height/Length: 72 in BMI: 25.6 ALLERGIES: None Given 15:47 08/06/2016 Gracy Madison R.N. Medication Administered: TDAP [IM], Dose: 0.5 mL IM. Medication Ordered: Tdap IM 0.5 mL (NOW, per protocol).
--- NOTE | 2016-08-06 18:29 | ED MED RECONCILIATION SUMMARY ---
Patient: AISLINN HANSEN Medication Reconciliation Report [facility] VisitID: [id number] [address] [place] [address] 60y, M Registration Date/Time: 08/06/2016 Weight: 85.7 kg Height/Length: 72 in. BMI: 25.6 ALLERGIES: None The patient's Home Medications are listed below: THE FOLLOWING MEDICATIONS NEED TO BE RECONCILED: Depakote Oral 2000 mg, at bedtime Neurontin Oral 600 mg, 2x a day Propranolol HCl 80 mg, daily The source(s) of the original Home Medication information: patient The following Medications were given to the patient in the Emergency Department: TDAP [IM] IM 0.5 mL, administered: 08/06/2016 3:47:00 PM The following Medications were prescribed to the patient: None.
== END 2016-08-06 18:26 | disposition home or self-care (01) ==
LOC: ED SRH 14:52
DX: S00.31XA Abrasion of nose, initial encounter (principal); W01.0XXA Fall on same level from slipping, tripping and stumbling without subsequent striking against object, initial encounter; Y93.01 Activity, walking, marching and hiking; Y92.410 Unspecified street and highway as the place of occurrence of the external cause; Y99.8 Other external cause status; I10 Essential (primary) hypertension; E11.9 Type 2 diabetes mellitus without complications; Z79.899 Other long term (current) drug therapy; Z23 Encounter for immunization
CPT/HCPCS: 90100; 90616; 92610; 92720; 94001; 94060; 95059

== ENCOUNTER 2016-08-20 19:03 | Emergency (ER) | payer OTHER ==
--- NOTE | 2016-08-21 09:59 | ED NURSING NOTES ---
Clinical Report - Nurses [facility] [address] [place] [address] 08/20/2016 19:05 Patient: AISLINN HANSEN TRIAGE Triage time 1911. Chief Complaint: DELUSIONS and CONFUSED and AGITATED. --19:16 Jose Fong R.N. 19:18 08/20/16. BP: unable to obtain due to patient condition. Additional comments: pt refuses any and all physical contact. pt telling staff that they are not allowed in room. . --19:19 Jose Fong R.N. ( pt extremely unhappy with the taking of his vital signs. required 4 staff members to accomplish r/t pt's paranoia and delusional thinking. pt crying out that staff are "all liars" when informed he is in the hospital and we are only trying to help him). --19:31 Jose Fong R.N. 19:28 08/20/16. BP: 227/110. HR: 110. RR: 20. O2 saturation: 99%. Temp: 98 F. Pain level now 0/10. --19:31 Jose Fong R.N. ( bp recheck for verification purposes). --19:32 Jose oFng R.N. 19:31 08/20/16. BP: 201/133. --19:32 Jose Fong R.N. Weight: 90.7 kg stated. Height/Length: 72 inches Per Patient. BMI: 27.1. --08:57 Yvette Lyons R.N. Medications Depakote Oral 2000 mg, at bedtime. Neurontin Oral 600 mg, 2x a day. Propranolol HCl 80 mg, daily. --19:14 Jose Fong R.N. Allergies None. --19:14 Jose Fong R.N. History Arrived by EMS. Historian: EMS. This is a recurrent problem and onset was gradual. Symptoms still present. ( pt sent in by PD. pt is "off his meds" and making nonsensical and delusional statements.). He has had anxiety and has been confused. Has been feeling agitated. 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 See EMS report. FUNCTIONAL ASSESSMENT: The functional assessment was deferred due to patient condition. LEARNING NEEDS ASSESSMENT: The learning needs assessment was deferred due to the patient's condition. SKIN INTEGRITY ASSESSMENT: Skin integrity risk assessment completed. No skin integrity risk identified. --19:16 Jose Fong R.N. PROBLEMS: Abrasion(s). Fall. Laceration. Hypertension. Immunizations. Bipolar Disorder. Diabetes Mellitus. --19:14 Jose Fong R.N. ADDITIONAL SURGERIES: Eye surgery. Rhinoplasty. --19:14 Jose Fong R.N. PHYSICAL ASSESSMENT To room via stretcher. GENERAL / NEURO / PSYCH: Appears anxious. The patient is disoriented to place and time. Behavior appears abnormal, including paranoid behaviors. He appears to have altered thought processes, verbalized as delusions of grandeur, flights of ideas and loose associations and including memory loss. Appears anxious, restless and agitated. Patient appears agitated. He is combative. Patient appears well-nourished and neat and clean. RESPIRATORY: Respirations not labored. Breath sounds within normal limits. CVS: Capillary refill less than 2 seconds. SKIN: Skin intact. Skin is warm and dry. Skin color is within normal limits. --19:17 Jose Fong R.N. ( pt refuses v/s's and any interventions as he is fearful that we are strangers and "not allowed to touch him"). --19:18 Jose Fong R.N. 07:30 Report received from oJse pt calm at this time, resting in bed. --09:58 Yvette Lyons R.N. 08:10 Door opened to check to see if pt needs anything, pt counting "1,2,3", doesn't answer any questions. --09:58 Yvette Lyons R.N. NURSING PROGRESS NOTES 08:55 08/21/16. BP: 169/101. HR: 96. RR: 18. O2 saturation: 95% on room air. Pain level now: 0/10. --08:55 Yvette Lyons R.N. 08:56 08/21/16. ( Pt thirsty, poultry field service technician gave pt juice and water to drink.). --08:56 Yvette Lyons R.N. 09:26 08/21/2016 Clonidine Topical 0.2 mg. Applied to the right upper back. Allergies verified and confirmed 5 rights. --09:26 Yvette Lyons R.N. EKG time: (09:20 AM). ( Phone call placed). --09:28 Yvette Lyons R.N. ( Phone call placed to [facility] in [place], they requested an EKG be done due to pt's hypertension, and for BP to be less that 200/110, treated with clonidine patch.). --09:30 Yvette Lyons R.N. 10:36 08/21/16. BP: 185/102. HR: 92. RR: 18. O2 saturation: 98% on room air. --10:37 Yvette Lyons R.N. ( Pt talks in riddles, not making any sense, but is cooperative for the most part, but wouldn't trust staff to take a BP pill, and threw it somewhere in the room.). --10:39 Yvette Lyons R.N. ( Lunch ordered for pt.). --10:44 Yvette Lyons R.N. 10:52 08/21/2016 Ativan (LORazepam) IM 2 mg given. Given in the right gluteus sapna. Allergies verified, confirmed 5 rights and sedative warning given. (plant protection guard assisted with pt positioning, pt was fairly cooperative.). --10:53 Yvette Lyons R.N. ( [facility] has declined admission.). --16:34 Yvette Lyons R.N. 16:33 08/21/16. BP: 145/98. HR: 73. RR: 18. O2 saturation: 98% on room air. Additional comments: Pt resting quietly. --16:34 Yvette Lyons R.N. 16:42 08/21/16. ( accucheck 123). --16:42 Yvette Lyons R.N. 17:59 08/21/2016 Site #1 started via IV in the left antecubital space with an 22g angiocath, with aseptic technique and good blood return; one attempt. Saline lock flushed with 5 mL saline (started by NAOMI Hagen). --18:09 Yvette Lyons R.N. 18:00 08/21/2016 Started bag #1 1000 mL IV Fluids IV NS (Saline); at 999 mL/hr over 1 hour(s) via site #1 via IV pump. --18:10 Yvette Lyons R.N. 18:07 08/21/16. ( Pt was incontinent of urine while sleeping, all clothing removed and bagged, washed skin, offered pt a urinal, but did not void, attends and paper scrubs placed on pt. Warm blankets applied, pt given sandwich and juice.). --18:07 Yvette Lyons R.N. 18:12 08/21/16. Temp: 97.5 F (tympanic). --18:12 Yvette Lyons R.N. 19:01 08/21/2016 IV Fluids IV NS Discontinued: bag #1 infused. Total amount infused: 1000 mL. --19:01 Yvette Lyons R.N. 19:02 08/21/2016 Site #1 removed upon discharge. Catheter intact. Bandage applied. --19:02 Yvette Lyons R.N. DISPOSITION / DISCHARGE 11:27 08/21/16. Condition at departure: unchanged. ( BP has improved. Pt still confused, talks a lot, doesn't make any sense.). --11:27 Yvette Lyons R.N. 11:25 08/21/16. BP: 172/99. HR: 89. RR: 18. O2 saturation: 98%. Temp: 97.9 F. Pain level now: 0/10. --11:27 Yvette Lyons R.N. 11:48 08/21/16. ( Called [facility], talked to Monika, she did receive the faxed chart, and recent vital signs. She stated that she will call us back, 12 lead EKG faxed to them also.). --11:48 Yvette Lyons R.N. 12:37 08/21/16. ( [facility] called, updated pt's info, and spoke to ERMD about pt status. Pt needs psychiatric help, BP much improved. Sleepy from Ativan, sats 98% on room air.). --12:37 Yvette Lyons R.N. 12:36 08/21/16. BP: 122/86. HR: 79. RR: 18. O2 saturation: 98%. --12:37 Yvette Lyons R.N. 14:00. ( [facility] in [place] eventually refused to take patient because they were afraid someone or himself would eat his clonidine patch.). --14:46 Yvette Lyons R.N. 15:36 08/21/16. ( Phone call to [facility], overview report of pt's behavior and medication given to charge nurse.). --15:36 Yvette Lyons R.N. ( Pt alert and appropriate, but sometimes refers to the word "question" again. Restraints dc'd, in other words, room door opened, and pt readied for transfer to [facility] in [place]. Report given.). --19:03 Yvette Lyons R.N. 19:14 08/21/16. ( [facility] here, pt taken on stretcher, after eating a lot of food, sandwich, chips, cookies, drank juice, and had 1 liter of NS IV. Verbal report given to information systems technician.). --19:14 Yvette Lyons R.N. Locked/Released at 08/21/2016 19:17 by Yvette Lyons R.N.
--- NOTE | 2016-08-21 09:59 | ED CLINICAL REPORT ---
Clinical Report - Physicians/Mid Levels [facility] [address] [place] [address] 08/20/2016 19:05 Patient: AISLINN HANSEN Time Seen: 19:09; initial patient contact. Arrived- By ambulance. In custody of police. Historian- patient and EMS personnel. History limited by psychosis and agitation. Physical Exam limited by psychosis and agitation. CPT: ER phys charges level 5 (#[id number]). HISTORY OF PRESENT ILLNESS Chief Complaint: AGITATED, DELUSIONAL and PARANOID. This started today. The patient has exhibited a recent behavior change. He has been angry. He was found wandering. He is non-compliant with medication. Has been angry and paranoid and exhibited unusual behavior. He has had delusions. No suicidal thoughts or self-injury inflicted. The symptoms are described as moderate. No injury is present. Similar symptoms previously: None. Recent medical care: Not recently seen/assessed. REVIEW OF SYSTEMS Unobtainable due to patient's altered mental status and uncooperativeness. No anorexia, chills, fatigue, fever or decreased vision. No ear pain, nasal congestion, epistaxis, sore throat or laceration. No skin rash, alteration in mental status, dizziness, headache or head injury. No suicidal thoughts, weakness, diabetic symptoms, easy bruising or symptoms of hypothyroidism. No difficulty walking. PAST HISTORY ( Abrasion(s). Fall. Laceration. Hypertension. Immunizations. Bipolar Disorder. Diabetes Mellitus. SURGERIES: Eye surgery. Rhinoplasty). SOCIAL HISTORY Smoker - current status unknown. ADDITIONAL NOTES The nursing notes have been reviewed with agreement regarding the chief complaint, PMH and patient medications and allergies. PHYSICAL EXAM Vital Signs: 08/20/2016 19:28 BP: 227/110. HR: 110. RR: 20. O2 saturation: 99%. Temp: 98 F. Have been reviewed. Hypertensive. Tachycardic. Respiratory rate normal. Temperature normal. Oxygen saturation normal. Appearance: Alert. No acute distress. Patient is uncooperative. Eyes: Pupils equal, round and reactive to light. Neck: Normal inspection. No meningeal signs. CVS: Normal heart rate and rhythm. Heart sounds normal. Respiratory: No respiratory distress. Breath sounds normal. Abdomen: Soft and nontender. Back: No tenderness. Skin: Skin warm. Normal skin color. Normal skin turgor. Extremities: No lower extremity edema. Psych / Neuro: Mood and affect normal. Speech is repetitive, inappropriate and pressured. The patient exhibits altered thought processes, verbalized as flights of ideas and non-sensical thoughts. The patient does not appear to understand his illness or feel treatment is necessary. He seems unconcerned about his current condition. Cranial nerves normal (as tested). No cerebellar findings. No motor deficit. No sensory deficit. Reflexes normal. LABS, X-RAYS, AND EKG EKG: Normal EKG. Laboratory Tests: UA-Culture if indicated: (SALOMON: 08/20/2016 20:21) ( [facility] [place] [place] Final results Test Result Flag Units (Reference) URINE COLOR YELLOW URINE APPEARANCE CLEAR URINE GLUCOSE NEGATIVE (NEGATIVE) URINE BILIRUBIN ICTOTEST NEGATIVE (NEGATIVE) URINE KETONE 3+ (NEGATIVE) URINE SPECIFIC GRAVITY >= 1.030 (1.010-1.030) URINE PH 5.5 (5.0-8.0) URINE PROTEIN 1+ (NEGATIVE) URINE UROBILINOGEN 0.2 EU/dL (0.2-1.0) URINE NITRITE NEGATIVE (NEGATIVE) URINE BLOOD 2+ (NEGATIVE) URINE LEUK ESTERASE NEGATIVE (NEGATIVE) URINE RBC 3-5 rbc/hpf (0-1) URINE WBC 1-3 wbc/hpf (0-1) URINE EPITHELIAL CELLS 3-5 EPI/hpf (0-5) URINE BACTERIA TRACE (<1+) (NONE SEEN) URINE COMMENT CULT NOT INDICATED 1+ MUCUSURINE CULTURES ARE SET-UP BASED ON THE FOLLOWING CRITERIA:POSITIVE NITRITEPOSITIVE LEUKOCYTE ESTERASEGREATER THAN 10 WHITE BLOOD CELLSMODERATE (2+) OR GREATER BACTERIA CBC w Diff: (SALOMON: 08/20/2016 20:12) ( [facility] [place] [place]/20/[place] 23:00) Final results Test Result Flag Units (Reference) WHITE BLOOD COUNT 9.2 K/uL (4.5-11.5) RED BLOOD COUNT 5.18 M/uL (4.50-5.90) HEMOGLOBIN 15.4 gm/dL (13.5-17.5) HEMATOCRIT 45.7 % (41.0-53.0) MEAN CELL VOLUME 88 fL (80-100) MEAN CORPUSCULAR HGB 30 pg (26-34) MEAN CORPUSCULAR HGB CONC 34 g/dL (31-37) RED CELL DISTRIBUTION WIDTH 12.8 % (11.6-14.8) PLATELET COUNT 204 K/uL (150-400) LYMPH % 23.3 L % (25-40) MONO % 6.8 % (3-14) GRANULOCYTE % 69.9 Urine Drug Screen: (SALOMON: 08/20/2016 23:11) ( MsgRcvd 08/20/2016 23:32) Final results Test Result Flag Units (Reference) AMPHETAMINE/METHAMPHETAMINE NEGATIVE (NEGATIVE) BARBITURATE NEGATIVE (NEGATIVE) BENZODIAZEPINE NEGATIVE (NEGATIVE) CANNABINOID POSITIVE H (NEGATIVE) COCAINE NEGATIVE (NEGATIVE) ECSTASY POSITIVE H (NEGATIVE) METHADONE NEGATIVE (NEGATIVE) OPIATE NEGATIVE (NEGATIVE) The urine drug screen is a qualitative screening test fordrug overdose and abuse. All screen results should beconsidered as presumptive.Drugs screened for are as follows:BenzodiazepinesCocaineAmphetamines/MetamphetaminesTHC (Tetrahydrocannabinol)OpiatesBarbituratesEcstasyMethadonePositive results are unconfirmed. For confirmation, notifythe lab for the specimen to be sent to the reference lab.All confirmations must be performed by a differentmethodology.The ingestion of natural herbal and plant productscontaining Ephedra/Ephedra metabolites can produce in urineone or more substances capable of cross reacting withamphetamine/methamphetamine immunoassays. These testsprovide a preliminary result only. A more specificalternative chemical method must be used to obtain aconfirmed analytical result. Ethyl Alcohol: (SALOMON: 08/20/2016 23:11) ( MsgRcvd 08/20/2016 23:19) Final results Test Result Flag Units (Reference) ETHYL ALCOHOL <3 L mg/dL (3-10) CMP: (SALOMON: 08/20/2016 20:12) ( MsgRcvd 08/20/2016 23:18) Final results Test Result Flag Units (Reference) GLUCOSE 169 H mg/dL (70-110) BUN 21 H mg/dL (7-18) CREATININE 1.1 mg/dL (0.6-1.3) Estimated GFR >60 mL/min Estimated GFR- >60 mL/min Note: Persistent reduction over 3 months in eGFR<60 mL/min/1.73 m2 defines CKD. Patients with eGFR values>=60 mL/min/1.73 m2 may also have CKD if evidence ofpersistent proteinuria. Additional information may be foundat www.kidney.org. SODIUM 144 mmol/L (136-145) POTASSIUM 4.8 mmol/L (3.5-5.1) CHLORIDE 105 mmol/L (98-107) CARBON DIOXIDE 26 mmol/L (21-32) CALCIUM 9.5 mg/dL (8.5-10.1) TOTAL PROTEIN 7.7 g/dL (6.4-8.2) ALBUMIN 4.2 g/dL (3.3-5.0) BILIRUBIN, TOTAL 1.6 H mg/dL (0.0-1.0) ALKALINE PHOSPHATASE 93 U/L (46-116) AST (SGOT) 25 U/L (15-37) ALT (SGPT) 44 U/L (12-78) . PROGRESS AND PROCEDURES Course of Care: 21:31 08/20/16. Case signed out to Dr. Murray. Awaiting labs for medical clearance for PAT team. 0900 216 Pt signed out to DR Moore due to change in shift. PAT team arrived last night and detained the patient and found a bed at [facility]. Pt observed throught the course of the day. Pt had been accepted at [facility] who later rejected the transfer due to high diastolic BP of 100. Blood pressure was brought down with topical clonidine patch and Ativan. [facility] again rejected the transfer due to the patch claiming they were concerned that the patient would try to eat his patch. They were informed that the patient has never tried to eat his patch and that it is on his back where he cannot reach it. They do not accept patients with transdermal medications as a policy. New facilities were explored through the course of the day and after hours of placement work , [facility] in [place] accepted him in transfer. Pt remained stable during his ER stay. Patient/family counseled. Disposition: Transferred. 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 (Electronically signed by Hero Moore MD 08/22/2016 11:39)
--- NOTE | 2016-08-21 09:59 | ED ORDER SUMMARY ---
..... Patient: AISLINN HANSEN OrderSheet [facility] VisitID: [id number] [place] [address] 60y, M Registration Date/Time: 08/20/2016 ORDER SHEET Weight: 90.7 kg (stated) Allergies: None GENERAL ORDERS: CBC w Diff Urgent (21:21 08/20/2016 Tatianna Childress) (21:22 Roman R.N.) CMP Urgent (21:08/20/2016 Tatianna Childress) (21:22 Roman R.N.) UA-Culture if indicated Urgent (21:08/20/2016 Tatianna Childress) (21:22 Roman Tanner.N.) Urine Drug Screen Urgent (23:08 08/20/2016 Jian HAYDEN) (23:22 Roman R.N.) Ethyl Alcohol Urgent (23:08 08/20/2016 Jian HAYDEN) (23:22 JBmk R.N.) EKG - ER Stat (09:01 08/21/2016 Cleveland R.NBerry verbal order read back to Jian HAYDEN) (Ack 9:03 LMuller) (9:23 LMuller) MEDICATION ORDERS: -- (Propranolol 20 mg IR po now) (09:06 08/21/2016 LSullivan R.N. verbal order read back to Dany HAYDEN) (Cancelled: Patient Refusal9:25 LSullivan R.N.) Clonidine Topical 0.2 mg (NOW) (09:25 08/21/2016 LSullivan R.N. verbal order read back to Dany HAYDEN) (9:26 LSullivan R.N.) Ativan IM 2 mg (NOW) (10:52 08/21/2016 LSullivan R.N. verbal order read back to Dany HAYDEN) (10:53 LSullivan R.N.) IV FLUIDS: IV NS with Normal Saline 1 Liter: initial bolus none -, then 1000 mL/hr for X1 (NOW); Deshawn (18:07 08/21/2016 LSullivan R.NBerry verbal order read back to Dany HAYDEN) (18:10 LSullivan R.N.) ORDER SHEET NOTES: [Electronically signed by Yvette Lyons R.N. (19:16 08/21/2016)] [Electronically signed by Yvette Lyons R.N. (19:17 08/21/2016)] [Electronically signed by Hero Moore MD (11:39 08/22/2016)] [Electronically locked/signed by Yvette Lyons R.N. (19:16 08/21/2016)]
--- NOTE | 2016-08-21 09:59 | ED ORDER SUMMARY ---
..... Patient: AISLINN HANSEN OrderSheet [facility] VisitID: [id number] [place] [address] 60y, M Registration Date/Time: 08/20/2016 ORDER SHEET Weight: 90.7 kg (stated) Allergies: None GENERAL ORDERS: CBC w Diff Urgent (21:21 08/20/2016 Tatianna Childress) (21:22 Roman R.N.) CMP Urgent (21:08/20/2016 Tatianna Childress) (21:22 Roman R.N.) UA-Culture if indicated Urgent (21:08/20/2016 Tatianna Childress) (21:22 Roman Tanner.N.) Urine Drug Screen Urgent (23:08 08/20/2016 Jian HAYDEN) (23:22 Roman R.N.) Ethyl Alcohol Urgent (23:08 08/20/2016 Jian HAYDEN) (23:22 JBmk R.N.) EKG - ER Stat (09:01 08/21/2016 Cleveland R.NBerry verbal order read back to Jian HAYDEN) (Ack 9:03 LMuller) (9:23 LMuller) MEDICATION ORDERS: -- (Propranolol 20 mg IR po now) (09:06 08/21/2016 LSullivan R.N. verbal order read back to Dany HAYDEN) (Cancelled: Patient Refusal9:25 LSullivan R.N.) Clonidine Topical 0.2 mg (NOW) (09:25 08/21/2016 LSullivan R.N. verbal order read back to Dany HAYDEN) (9:26 LSullivan R.N.) Ativan IM 2 mg (NOW) (10:52 08/21/2016 LSullivan R.N. verbal order read back to Dany HAYDEN) (10:53 LSullivan R.N.) IV FLUIDS: IV NS with Normal Saline 1 Liter: initial bolus none -, then 1000 mL/hr for X1 (NOW); Deshawn (18:07 08/21/2016 LSullivan R.NBerry verbal order read back to Dany HAYDEN) (18:10 LSullivan R.N.) ORDER SHEET NOTES: [Electronically signed by Yvette Lyons R.N. (19:16 08/21/2016)] [Electronically signed by Yvtete Lyons R.N. (19:17 08/21/2016)] [Electronically signed by Hero Moore MD (11:39 08/22/2016)] [Electronically locked/signed by Yvette Lyons R.N. (19:16 08/21/2016)]
--- NOTE | 2016-08-21 09:59 | ED NURSING NOTES ---
Clinical Report - Nurses [facility] [address] [place] [address] 08/20/2016 19:05 Patient: AISLINN HANSEN TRIAGE Triage time 1911. Chief Complaint: DELUSIONS and CONFUSED and AGITATED. --19:16 Jose Fong R.N. 19:18 08/20/16. BP: unable to obtain due to patient condition. Additional comments: pt refuses any and all physical contact. pt telling staff that they are not allowed in room. . --19:19 Jose Fong R.N. ( pt extremely unhappy with the taking of his vital signs. required 4 staff members to accomplish r/t pt's paranoia and delusional thinking. pt crying out that staff are "all liars" when informed he is in the hospital and we are only trying to help him). --19:31 Jose Fong R.N. 19:28 08/20/16. BP: 227/110. HR: 110. RR: 20. O2 saturation: 99%. Temp: 98 F. Pain level now 0/10. --19:31 Jose Fong R.N. ( bp recheck for verification purposes). --19:32 Jose Fong R.N. 19:31 08/20/16. BP: 201/133. --19:32 Jose Fong R.N. Weight: 90.7 kg stated. Height/Length: 72 inches Per Patient. BMI: 27.1. --08:57 Yvette Lyons R.N. Medications Depakote Oral 2000 mg, at bedtime. Neurontin Oral 600 mg, 2x a day. Propranolol HCl 80 mg, daily. --19:14 Jose Fong R.N. Allergies None. --19:14 Jose Fong R.N. History Arrived by EMS. Historian: EMS. This is a recurrent problem and onset was gradual. Symptoms still present. ( pt sent in by PD. pt is "off his meds" and making nonsensical and delusional statements.). He has had anxiety and has been confused. Has been feeling agitated. Treatment SUBSCRIPTION AGENT: None. See EMS report. FUNCTIONAL ASSESSMENT: The functional assessment was deferred due to patient condition. LEARNING NEEDS ASSESSMENT: The learning needs assessment was deferred due to the patient's condition. SKIN INTEGRITY ASSESSMENT: Skin integrity risk assessment completed. No skin integrity risk identified. --19:16 Jose Fong R.N. PROBLEMS: Abrasion(s). Fall. Laceration. Hypertension. Immunizations. Bipolar Disorder. Diabetes Mellitus. --19:14 Jose Fong R.N. ADDITIONAL SURGERIES: Eye surgery. Rhinoplasty. --19:14 Jose Fong R.N. PHYSICAL ASSESSMENT To room via stretcher. GENERAL / NEURO / PSYCH: Appears anxious. The patient is disoriented to place and time. Behavior appears abnormal, including paranoid behaviors. He appears to have altered thought processes, verbalized as delusions of grandeur, flights of ideas and loose associations and including memory loss. Appears anxious, restless and agitated. Patient appears agitated. He is combative. Patient appears well-nourished and neat and clean. RESPIRATORY: Respirations not labored. Breath sounds within normal limits. CVS: Capillary refill less than 2 seconds. SKIN: Skin intact. Skin is warm and dry. Skin color is within normal limits. --19:17 Jose Fong R.N. ( pt refuses v/s's and any interventions as he is fearful that we are strangers and "not allowed to touch him"). --19:18 Jose Fong R.N. 07:30 Report received from Jose pt calm at this time, resting in bed. --09:58 Yvette Lyons R.N. 08:10 Door opened to check to see if pt needs anything, pt counting "1,2,3", doesn't answer any questions. --09:58 Yvette Lyons R.N. NURSING PROGRESS NOTES 08:55 08/21/16. BP: 169/101. HR: 96. RR: 18. O2 saturation: 95% on room air. Pain level now: 0/10. --08:55 Yvette Lyons R.N. 08:56 08/21/16. ( Pt thirsty, electroencephalogram technologist gave pt juice and water to drink.). --08:56 Yvette Lyons R.N. 09:26 08/21/2016 Clonidine Topical 0.2 mg. Applied to the right upper back. Allergies verified and confirmed 5 rights. --09:26 Yvette Lyons R.N. EKG time: (09:20 AM). ( Phone call placed). --09:28 Yvette Lyons R.N. ( Phone call placed to [facility] in [place], they requested an EKG be done due to pt's hypertension, and for BP to be less that 200/110, treated with clonidine patch.). --09:30 Yvette Lyons R.N. 10:36 08/21/16. BP: 185/102. HR: 92. RR: 18. O2 saturation: 98% on room air. --10:37 Yvette Lyons R.N. ( Pt talks in riddles, not making any sense, but is cooperative for the most part, but wouldn't trust staff to take a BP pill, and threw it somewhere in the room.). --10:39 Yvette Lyons R.N. ( Lunch ordered for pt.). --10:44 Yvette Lyons R.N. 10:52 08/21/2016 Ativan (LORazepam) IM 2 mg given. Given in the right gluteus sapna. Allergies verified, confirmed 5 rights and sedative warning given. (out and out cigar maker hand assisted with pt positioning, pt was fairly cooperative.). --10:53 Yvette Lyons R.N. ( [facility] has declined admission.). --16:34 Yvette Lyons R.N. 16:33 08/21/16. BP: 145/98. HR: 73. RR: 18. O2 saturation: 98% on room air. Additional comments: Pt resting quietly. --16:34 Yvette Lyons R.N. 16:42 08/21/16. ( accucheck 123). --16:42 Yvette Lyons R.N. 17:59 08/21/2016 Site #1 started via IV in the left antecubital space with an 22g angiocath, with aseptic technique and good blood return; one attempt. Saline lock flushed with 5 mL saline (started by NAOMI Hagen). --18:09 Yvette Lyons R.N. 18:00 08/21/2016 Started bag #1 1000 mL IV Fluids IV NS (Saline); at 999 mL/hr over 1 hour(s) via site #1 via IV pump. --18:10 Yvette Lyons R.N. 18:07 08/21/16. ( Pt was incontinent of urine while sleeping, all clothing removed and bagged, washed skin, offered pt a urinal, but did not void, attends and paper scrubs placed on pt. Warm blankets applied, pt given sandwich and juice.). --18:07 Yvette Lyons R.N. 18:12 08/21/16. Temp: 97.5 F (tympanic). --18:12 Yvette Lyons R.N. 19:01 08/21/2016 IV Fluids IV NS Discontinued: bag #1 infused. Total amount infused: 1000 mL. --19:01 Yvette Lyons R.N. 19:02 08/21/2016 Site #1 removed upon discharge. Catheter intact. Bandage applied. --19:02 Yvette Lyons R.N. DISPOSITION / DISCHARGE 11:27 08/21/16. Condition at departure: unchanged. ( BP has improved. Pt still confused, talks a lot, doesn't make any sense.). --11:27 Yvette Lyons R.N. 11:25 08/21/16. BP: 172/99. HR: 89. RR: 18. O2 saturation: 98%. Temp: 97.9 F. Pain level now: 0/10. --11:27 Yvette Lyons R.N. 11:48 08/21/16. ( Called [facility], talked to Monika, she did receive the faxed chart, and recent vital signs. She stated that she will call us back, 12 lead EKG faxed to them also.). --11:48 Yvette Lyons R.N. 12:37 08/21/16. ( [facility] called, updated pt's info, and spoke to ERMD about pt status. Pt needs psychiatric help, BP much improved. Sleepy from Ativan, sats 98% on room air.). --12:37 Yvette Lyons R.N. 12:36 08/21/16. BP: 122/86. HR: 79. RR: 18. O2 saturation: 98%. --12:37 Yvette Lyons R.N. 14:00. ( [facility] in [place] eventually refused to take patient because they were afraid someone or himself would eat his clonidine patch.). --14:46 Yvette Lyons R.N. 15:36 08/21/16. ( Phone call to [facility], overview report of pt's behavior and medication given to charge nurse.). --15:36 Yvette Lyons R.N. ( Pt alert and appropriate, but sometimes refers to the word "question" again. Restraints dc'd, in other words, room door opened, and pt readied for transfer to [facility] [place]. Report given.). --19:03 Yvette Lyons R.N. 19:14 08/21/16. ( [facility] here, pt taken on stretcher, after eating a lot of food, sandwich, chips, cookies, drank juice, and had 1 liter of NS IV. Verbal report given to floor winder.). --19:14 Yvette Lyons R.N. Locked/Released at 08/21/2016 19:17 by Yvette Lyons R.N.
--- NOTE | 2016-08-21 09:59 | ED CLINICAL REPORT ---
Clinical Report - Physicians/Mid Levels [facility] [address] [place] [address] 08/20/2016 19:05 Patient: AISLINN HANSEN Time Seen: 19:09; initial patient contact. Arrived- By ambulance. In custody of police. Historian- patient and EMS personnel. History limited by psychosis and agitation. Physical Exam limited by psychosis and agitation. CPT: ER phys charges level 5 (#[id number]). HISTORY OF PRESENT ILLNESS Chief Complaint: AGITATED, DELUSIONAL and PARANOID. This started today. The patient has exhibited a recent behavior change. He has been angry. He was found wandering. He is non-compliant with medication. Has been angry and paranoid and exhibited unusual behavior. He has had delusions. No suicidal thoughts or self-injury inflicted. The symptoms are described as moderate. No injury is present. Similar symptoms previously: None. Recent medical care: Not recently seen/assessed. REVIEW OF SYSTEMS Unobtainable due to patient's altered mental status and uncooperativeness. No anorexia, chills, fatigue, fever or decreased vision. No ear pain, nasal congestion, epistaxis, sore throat or laceration. No skin rash, alteration in mental status, dizziness, headache or head injury. No suicidal thoughts, weakness, diabetic symptoms, easy bruising or symptoms of hypothyroidism. No difficulty walking. PAST HISTORY ( Abrasion(s). Fall. Laceration. Hypertension. Immunizations. Bipolar Disorder. Diabetes Mellitus. SURGERIES: Eye surgery. Rhinoplasty). SOCIAL HISTORY Smoker - current status unknown. ADDITIONAL NOTES The nursing notes have been reviewed with agreement regarding the chief complaint, PMH and patient medications and allergies. PHYSICAL EXAM Vital Signs: 08/20/2016 19:28 BP: 227/110. HR: 110. RR: 20. O2 saturation: 99%. Temp: 98 F. Have been reviewed. Hypertensive. Tachycardic. Respiratory rate normal. Temperature normal. Oxygen saturation normal. Appearance: Alert. No acute distress. Patient is uncooperative. Eyes: Pupils equal, round and reactive to light. Neck: Normal inspection. No meningeal signs. CVS: Normal heart rate and rhythm. Heart sounds normal. Respiratory: No respiratory distress. Breath sounds normal. Abdomen: Soft and nontender. Back: No tenderness. Skin: Skin warm. Normal skin color. Normal skin turgor. Extremities: No lower extremity edema. Psych / Neuro: Mood and affect normal. Speech is repetitive, inappropriate and pressured. The patient exhibits altered thought processes, verbalized as flights of ideas and non-sensical thoughts. The patient does not appear to understand his illness or feel treatment is necessary. He seems unconcerned about his current condition. Cranial nerves normal (as tested). No cerebellar findings. No motor deficit. No sensory deficit. Reflexes normal. LABS, X-RAYS, AND EKG EKG: Normal EKG. Laboratory Tests: UA-Culture if indicated: (SALOMON: 08/20/2016 20:21) ( [facility] 08/20/[facility] 22:04) Final results Test Result Flag Units (Reference) URINE COLOR YELLOW URINE APPEARANCE CLEAR URINE GLUCOSE NEGATIVE (NEGATIVE) URINE BILIRUBIN ICTOTEST NEGATIVE (NEGATIVE) URINE KETONE 3+ (NEGATIVE) URINE SPECIFIC GRAVITY >= 1.030 (1.010-1.030) URINE PH 5.5 (5.0-8.0) URINE PROTEIN 1+ (NEGATIVE) URINE UROBILINOGEN 0.2 EU/dL (0.2-1.0) URINE NITRITE NEGATIVE (NEGATIVE) URINE BLOOD 2+ (NEGATIVE) URINE LEUK ESTERASE NEGATIVE (NEGATIVE) URINE RBC 3-5 rbc/hpf (0-1) URINE WBC 1-3 wbc/hpf (0-1) URINE EPITHELIAL CELLS 3-5 EPI/hpf (0-5) URINE BACTERIA TRACE (<1+) (NONE SEEN) URINE COMMENT CULT NOT INDICATED 1+ MUCUSURINE CULTURES ARE SET-UP BASED ON THE FOLLOWING CRITERIA:POSITIVE NITRITEPOSITIVE LEUKOCYTE ESTERASEGREATER THAN 10 WHITE BLOOD CELLSMODERATE (2+) OR GREATER BACTERIA CBC w Diff: (SALOMON: 08/20/2016 20:12) ( [facility] 08/20/2016 23:00) Final results Test Result Flag Units (Reference) WHITE BLOOD COUNT 9.2 K/uL (4.5-11.5) RED BLOOD COUNT 5.18 M/uL (4.50-5.90) HEMOGLOBIN 15.4 gm/dL (13.5-17.5) HEMATOCRIT 45.7 % (41.0-53.0) MEAN CELL VOLUME 88 fL (80-100) MEAN CORPUSCULAR HGB 30 pg (26-34) MEAN CORPUSCULAR HGB CONC 34 g/dL (31-37) RED CELL DISTRIBUTION WIDTH 12.8 % (11.6-14.8) PLATELET COUNT 204 K/uL (150-400) LYMPH % 23.3 L % (25-40) MONO % 6.8 % (3-14) GRANULOCYTE % 69.9 Urine Drug Screen: (SALOMON: 08/20/2016 23:11) ( [facility] 08/20/2016 23:32) Final results Test Result Flag Units (Reference) AMPHETAMINE/METHAMPHETAMINE NEGATIVE (NEGATIVE) BARBITURATE NEGATIVE (NEGATIVE) BENZODIAZEPINE NEGATIVE (NEGATIVE) CANNABINOID POSITIVE H (NEGATIVE) COCAINE NEGATIVE (NEGATIVE) ECSTASY POSITIVE H (NEGATIVE) METHADONE NEGATIVE (NEGATIVE) OPIATE NEGATIVE (NEGATIVE) The urine drug screen is a qualitative screening test fordrug overdose and abuse. All screen results should beconsidered as presumptive.Drugs screened for are as follows:BenzodiazepinesCocaineAmphetamines/MetamphetaminesTHC (Tetrahydrocannabinol)OpiatesBarbituratesEcstasyMethadonePositive results are unconfirmed. For confirmation, notifythe lab for the specimen to be sent to the reference lab.All confirmations must be performed by a differentmethodology.The ingestion of natural herbal and plant productscontaining Ephedra/Ephedra metabolites can produce in urineone or more substances capable of cross reacting withamphetamine/methamphetamine immunoassays. These testsprovide a preliminary result only. A more specificalternative chemical method must be used to obtain aconfirmed analytical result. Ethyl Alcohol: (SALOMON: 08/20/2016 23:11) ( [facility] 08/20/2016 23:19) Final results Test Result Flag Units (Reference) ETHYL ALCOHOL <3 L mg/dL (3-10) CMP: (SALOMON: 08/20/2016 20:12) ( Msg[facility]cvd 08/20/2016 23:18) Final results Test Result Flag Units (Reference) GLUCOSE 169 H mg/dL (70-110) BUN 21 H mg/dL (7-18) CREATININE 1.1 mg/dL (0.6-1.3) Estimated GFR >60 mL/min Estimated GFR- >60 mL/min Note: Persistent reduction over 3 months in eGFR<60 mL/min/1.73 m2 defines CKD. Patients with eGFR values>=60 mL/min/1.73 m2 may also have CKD if evidence ofpersistent proteinuria. Additional information may be foundat www.kidney.org. SODIUM 144 mmol/L (136-145) POTASSIUM 4.8 mmol/L (3.5-5.1) CHLORIDE 105 mmol/L (98-107) CARBON DIOXIDE 26 mmol/L (21-32) CALCIUM 9.5 mg/dL (8.5-10.1) TOTAL PROTEIN 7.7 g/dL (6.4-8.2) ALBUMIN 4.2 g/dL (3.3-5.0) BILIRUBIN, TOTAL 1.6 H mg/dL (0.0-1.0) ALKALINE PHOSPHATASE 93 U/L (46-116) AST (SGOT) 25 U/L (15-37) ALT (SGPT) 44 U/L (12-78) . PROGRESS AND PROCEDURES Course of Care: 21:31 08/20/16. Case signed out to Dr. Murray. Awaiting labs for medical clearance for PAT team. 0900 [address] Pt signed out to DR Moore due to change in shift. PAT team arrived last night and detained the patient and found a bed at [facility]. Pt observed throught the course of the day. Pt had been accepted at [facility] who later rejected the transfer due to high diastolic BP of 100. Blood pressure was brought down with topical clonidine patch and Ativan. [facility] again rejected the transfer due to the patch claiming they were concerned that the patient would try to eat his patch. They were informed that the patient has never tried to eat his patch and that it is on his back where he cannot reach it. They do not accept patients with transdermal medications as a policy. New facilities were explored through the course of the day and after hours of placement work , [facility] in [place] accepted him in transfer. Pt remained stable during his ER stay. Patient/family counseled. Disposition: Transferred. 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 (Electronically signed by Hero Moore MD 08/22/2016 11:39)
--- NOTE | 2016-08-22 11:39 | ED DISCHARGE INSTRUCTIONS ---
Patient: AISLINN HANSEN General Instructions [facility] VisitID: [id number] [place] [address] 60y, M Registration Date/Time: 08/20/2016 Acute reactive and paranoid psychosis with delusions. ADDITIONAL INFORMATION Psychosis Psychosis is a mental health problem. It causes a person to be out of touch with reality and affects a persons daily functioning. There are different kinds of psychosis: Drug-induced (due to alcohol, methamphetamine, cocaine, LSD, PCP and others) Bipolar disorder (formerly called Manic-Depression) Depression Schizophrenia Dementia Symptoms of psychosis can include: Hearing voices that others do not hear Seeing things that others do not see Racing thoughts Lack of energy Feeling extremely fearful Treatment for psychosis depends on the cause. Medicine, with or without psychotherapy, is often used. Home Care: Be sure to take your medicine as directed even if you think you don't need it. Talk with your family about your feelings and thoughts. Follow Up with your counselor, therapist or psychiatrist as advised by our staff. To learn more about this illness and available resources, contact your local mental health organization. National [place] on Mental Illness: www.shannon.org Get Prompt Medical Attention if any of the following occur: Feeling like you want to harm yourself or another Feeling extremely depressed Feeling out of control or being controlled by others Unable to care for yourself You have been given the following additional information: Psychosis (Electronically signed by Hero Moore MD 08/22/2016 11:39)
--- NOTE | 2016-08-22 11:39 | ED DISCHARGE INSTRUCTIONS ---
Patient: AISLINN HANSEN General Instructions [facility] VisitID: [id number] [place] [address] 60y, M Registration Date/Time: 08/20/2016 Acute reactive and paranoid psychosis with delusions. ADDITIONAL INFORMATION Psychosis Psychosis is a mental health problem. It causes a person to be out of touch with reality and affects a persons daily functioning. There are different kinds of psychosis: Drug-induced (due to alcohol, methamphetamine, cocaine, LSD, PCP and others) Bipolar disorder (formerly called Manic-Depression) Depression Schizophrenia Dementia Symptoms of psychosis can include: Hearing voices that others do not hear Seeing things that others do not see Racing thoughts Lack of energy Feeling extremely fearful Treatment for psychosis depends on the cause. Medicine, with or without psychotherapy, is often used. Home Care: Be sure to take your medicine as directed even if you think you don't need it. Talk with your family about your feelings and thoughts. Follow Up with your counselor, therapist or psychiatrist as advised by our staff. To learn more about this illness and available resources, contact your local mental health organization. National [place] on Mental Illness: www.shannon.org Get Prompt Medical Attention if any of the following occur: Feeling like you want to harm yourself or another Feeling extremely depressed Feeling out of control or being controlled by others Unable to care for yourself You have been given the following additional information: Psychosis (Electronically signed by Hero Moore MD 08/22/2016 11:39)
--- NOTE | 2016-08-22 11:40 | ED MAR SUMMARY ---
..... Medication Administration Record [facility] [address] [place] [address] Patient: AISLINN HANSEN Visit ID: [id number] 60y, M Weight: 90.7 kg Height/Length: 72 in BMI: 27.1 ALLERGIES: None Given 09:26 08/21/2016 Yvette Lyons R.N. Medication Administered: CLONIDINE [TOPICAL], Dose: 0.2 mg Topical. Medication Ordered: Clonidine Topical 0.2 mg (NOW). Given 10:52 08/21/2016 Yvette Lyons R.N. Medication Administered: ATIVAN [IM] (LORAZEPAM), Dose: 2 mg IM. Medication Ordered: Ativan IM 2 mg (NOW). Start 18:00 08/21/2016 Yvette Lyons R.N., Stop 19:01 08/21/2016 Yvette Lyons R.N. Medication Administered: IV NS (SALINE), Dose: IV Fluids over 1 hour(s), Rate: 999 mL/hr, Dispensed: 1000 mL bag, Site: #1 left . Medication Ordered: IV NS with Normal Saline 1 Liter: initial bolus none -, then 1000 mL/hr for X1 (NOW); Deshawn.
--- NOTE | 2016-08-22 11:40 | ED MED RECONCILIATION SUMMARY ---
Patient: AISLINN HANSEN Medication Reconciliation Report [facility] VisitID: [id number] [address] [place] [address] 60y, M Registration Date/Time: 08/20/2016 Weight: 90.7 kg Height/Length: 72 in. BMI: 27.1 ALLERGIES: None The patient's Home Medications are listed below: THE FOLLOWING MEDICATIONS NEED TO BE RECONCILED: Depakote Oral 2000 mg, at bedtime Neurontin Oral 600 mg, 2x a day Propranolol HCl 80 mg, daily The source(s) of the original Home Medication information: Not obtained. The following Medications were given to the patient in the Emergency Department: Clonidine [Topical] Topical 0.2 mg, administered: 08/21/2016 9:26:00 AM Ativan [IM] IM 2 mg, administered: 08/21/2016 10:52:00 AM IV NS IV Fluids bolus 0, then 999 mL/hr, administered: 08/21/2016 6:00:00 PM The following Medications were prescribed to the patient: None.
--- NOTE | 2016-08-22 11:40 | ED MAR SUMMARY ---
..... Medication Administration Record [facility] [address] [place] [address] Patient: AISLINN HANSEN Visit ID: [id number] 60y, M Weight: 90.7 kg Height/Length: 72 in BMI: 27.1 ALLERGIES: None Given 09:26 08/21/2016 Yvette Lyons R.N. Medication Administered: CLONIDINE [TOPICAL], Dose: 0.2 mg Topical. Medication Ordered: Clonidine Topical 0.2 mg (NOW). Given 10:52 08/21/2016 Yvette Lyons R.N. Medication Administered: ATIVAN [IM] (LORAZEPAM), Dose: 2 mg IM. Medication Ordered: Ativan IM 2 mg (NOW). Start 18:00 08/21/2016 Yvette Lyons R.N., Stop 19:01 08/21/2016 Yvette Lyons R.N. Medication Administered: IV NS (SALINE), Dose: IV Fluids over 1 hour(s), Rate: 999 mL/hr, Dispensed: 1000 mL bag, Site: #1 left . Medication Ordered: IV NS with Normal Saline 1 Liter: initial bolus none -, then 1000 mL/hr for X1 (NOW); Deshawn.
--- NOTE | 2016-08-22 11:40 | ED MED RECONCILIATION SUMMARY ---
Patient: AISLINN HANSEN Medication Reconciliation Report [facility] VisitID: [id number] [address] [place] [address] 60y, M Registration Date/Time: 08/20/2016 Weight: 90.7 kg Height/Length: 72 in. BMI: 27.1 ALLERGIES: None The patient's Home Medications are listed below: THE FOLLOWING MEDICATIONS NEED TO BE RECONCILED: Depakote Oral 2000 mg, at bedtime Neurontin Oral 600 mg, 2x a day Propranolol HCl 80 mg, daily The source(s) of the original Home Medication information: Not obtained. The following Medications were given to the patient in the Emergency Department: Clonidine [Topical] Topical 0.2 mg, administered: 08/21/2016 9:26:00 AM Ativan [IM] IM 2 mg, administered: 08/21/2016 10:52:00 AM IV NS IV Fluids bolus 0, then 999 mL/hr, administered: 08/21/2016 6:00:00 PM The following Medications were prescribed to the patient: None.
== END 2016-08-21 19:12 ==
LOC: ED SRH 19:03
DX: F22 Delusional disorders (principal); I10 Essential (primary) hypertension; E11.9 Type 2 diabetes mellitus without complications; Z79.899 Other long term (current) drug therapy
CPT/HCPCS: 90004; 90074; 90100; 92010; 92760; 92761; 92762; 92763; 92764; 92765; 92766; 92767; 95059

== ENCOUNTER 2016-08-30 15:20 | Emergency (ER) | payer OTHER ==
--- NOTE | 2016-08-30 17:18 | ED ORDER SUMMARY ---
..... Patient: AISLINN HANSEN OrderSheet [facility] VisitID: [id number] [address] [place] [address] 60y, M Registration Date/Time: 08/30/2016 ORDER SHEET Weight: 80.7 kg (stated) Allergies: None GENERAL ORDERS: CBC w Diff Urgent (15:53 08/30/2016 JCoates) (Ack 15:59 LTapper) (17:19 JSimbeck R.N.) CMP Urgent (15:53 08/30/2016 JCoates) (Ack 15:59 LTapper) (17:19 JSimbeck R.N.) UA-Culture if indicated Urgent (15:53 08/30/2016 JCoates) (Ack 15:59 LTapper) (16:10 JSimbeck R.N.) Urine Drug Screen Urgent (15:53 08/30/2016 JCoates) (Ack 15:59 LTapper) (16:10 JSimbeck R.N.) TSH Urgent (15:53 08/30/2016 JCoates) (Ack 15:59 LTapper) (17:19 JSimbeck R.N.) POC Glucose (16:01 08/30/2016 JSimbeck R.N. verbal order read back to JCoates) (16:11 JSimbeck R.N.) MEDICATION ORDERS: IV FLUIDS: ORDER SHEET NOTES: [Electronically signed by Fracisco Verma R.N. (17:29 08/30/2016)] [Electronically signed by Chiki Gifford (23:49 08/30/2016)] [Electronically locked/signed by Fracisco Verma R.N. (17:29 08/30/2016)]
--- NOTE | 2016-08-30 17:18 | ED CLINICAL REPORT ---
Clinical Report - Physicians/Mid Levels [facility] [address] [place] [address] 08/30/2016 15:20 Patient: AISLINN HANSEN Time Seen: 15:34 Aug 30 2016. Arrived- By private vehicle. Historian- patient. HISTORY OF PRESENT ILLNESS Chief Complaint: DIZZINESS. Described as feeling light-headed and a sense of confusion. This started today and is still present but is better now. No nausea, vomiting, hearing loss, tinnitus or ear pain. (Patient sent here for evaluation by his psychologist. Apparently the patient was just discharged froma behavioral health unit. Patient says he was sleeping and was woken upby staff to see a psychologist. Patient says he felt very groggy and was a little bit confused when he saw the psychologist. He says it was simply from lack of sleep. Hesays he's had some issues with confusion and poor balance but this has been evaluated prior and he says it's actually better than its been in the past.). Similar symptoms previously: Several times. Recent medical care: The patient was seen recently at this facility. REVIEW OF SYSTEMS No headache, weakness, chest pain, numbness or sore throat. No cough, difficulty breathing, abdominal pain, diarrhea or difficulty with urination. No skin rash. He has had difficulty walking. All systems otherwise negative, except as recorded above. PAST HISTORY See nurses notes. Hypertension. Diabetes mellitus. No history of heart disease or lung disease. SOCIAL HISTORY Former smoker. History of drug use. No alcohol use. ADDITIONAL NOTES The nursing notes have been reviewed. PHYSICAL EXAM Appearance: Alert. No acute distress. Eyes: Pupils equal, round and reactive to light. No nystagmus. ENT: Normal ENT inspection. TM's normal. Moist mucous membranes. Pharynx normal. Neck: Normal inspection. Neck supple. No meningeal signs. CVS: Normal heart rate and rhythm. Heart sounds normal. Respiratory: No respiratory distress. Breath sounds normal. Back: Normal inspection. Skin: Skin warm and dry. Normal skin color. No rash. Normal skin turgor. Extremities: Extremities exhibit normal ROM. Neuro: Alert. Oriented X 3. Mood/affect normal. Speech normal. Cranial nerves normal (as tested). No cerebellar findings. No motor deficit. No sensory deficit. LABS, X-RAYS, AND EKG Laboratory Tests: UA-Culture if indicated: (SALOMON: 08/30/2016 16:05) ( [facility] [place] 08/30/2016 16:30) Final results Test Result Flag Units (Reference) URINE COLOR YELLOW URINE APPEARANCE CLEAR URINE GLUCOSE NEGATIVE (NEGATIVE) URINE BILIRUBIN NEGATIVE (NEGATIVE) URINE KETONE 1+ (NEGATIVE) URINE SPECIFIC GRAVITY 1.015 (1.010-1.030) URINE PH 7.0 (5.0-8.0) URINE PROTEIN NEGATIVE (NEGATIVE) URINE UROBILINOGEN 0.2 EU/dL (0.2-1.0) URINE NITRITE NEGATIVE (NEGATIVE) URINE BLOOD NEGATIVE (NEGATIVE) URINE LEUK ESTERASE NEGATIVE (NEGATIVE) URINE RBC 0-1 rbc/hpf (0-1) URINE WBC 1-3 wbc/hpf (0-1) URINE EPITHELIAL CELLS 1-3 EPI/hpf (0-5) URINE BACTERIA TRACE (<1+) (NONE SEEN) URINE COMMENT CULT NOT INDICATED URINE CULTURES ARE SET-UP BASED ON THE FOLLOWING CRITERIA:POSITIVE NITRITEPOSITIVE LEUKOCYTE ESTERASEGREATER THAN 10 WHITE BLOOD CELLSMODERATE (2+) OR GREATER BACTERIA CBC w Diff: (SALOMON: 08/30/2016 16:20) ( [facility] [place] 08/30/2016 16:45) Final results Test Result Flag Units (Reference) WHITE BLOOD COUNT 5.5 K/uL (4.5-11.5) RED BLOOD COUNT 4.43 L M/uL (4.50-5.90) HEMOGLOBIN 13.4 L gm/dL (13.5-17.5) HEMATOCRIT 39.3 L % (41.0-53.0) MEAN CELL VOLUME 89 fL (80-100) MEAN CORPUSCULAR HGB 30 pg (26-34) MEAN CORPUSCULAR HGB CONC 34 g/dL (31-37) RED CELL DISTRIBUTION WIDTH 13.2 % (11.6-14.8) PLATELET COUNT 144 L K/uL (150-400) NEUTROPHIL % 50.2 % (50-75) LYMPH % 37.3 % (25-40) MONO % 9.4 % (3-14) EOSINOPHIL % 2.7 % (0-4) BASOPHIL % 0.4 % (0-2) Urine Drug Screen: (SALOMON: 08/30/2016 16:05) ( MsgRcvd 08/30/2016 16:31) Final results Test Result Flag Units (Reference) AMPHETAMINE/METHAMPHETAMINE NEGATIVE (NEGATIVE) BARBITURATE NEGATIVE (NEGATIVE) BENZODIAZEPINE NEGATIVE (NEGATIVE) CANNABINOID NEGATIVE (NEGATIVE) COCAINE NEGATIVE (NEGATIVE) ECSTASY NEGATIVE (NEGATIVE) METHADONE NEGATIVE (NEGATIVE) OPIATE NEGATIVE (NEGATIVE) The urine drug screen is a qualitative screening test fordrug overdose and abuse. All screen results should beconsidered as presumptive.Drugs screened for are as follows:BenzodiazepinesCocaineAmphetamines/MetamphetaminesTHC (Tetrahydrocannabinol)OpiatesBarbituratesEcstasyMethadonePositive results are unconfirmed. For confirmation, notifythe lab for the specimen to be sent to the reference lab.All confirmations must be performed by a differentmethodology.The ingestion of natural herbal and plant productscontaining Ephedra/Ephedra metabolites can produce in urineone or more substances capable of cross reacting withamphetamine/methamphetamine immunoassays. These testsprovide a preliminary result only. A more specificalternative chemical method must be used to obtain aconfirmed analytical result. CMP: (SALOMON: 08/30/2016 16:20) ( MsgRcvd 08/30/2016 17:02) Final results Test Result Flag Units (Reference) GLUCOSE 170 H mg/dL (70-110) BUN 18 mg/dL (7-18) CREATININE 0.8 mg/dL (0.6-1.3) Estimated GFR >60 mL/min Estimated GFR- >60 mL/min Note: Persistent reduction over 3 months in eGFR<60 mL/min/1.73 m2 defines CKD. Patients with eGFR values>=60 mL/min/1.73 m2 may also have CKD if evidence ofpersistent proteinuria. Additional information may be foundat www.kidney.org. SODIUM 140 mmol/L (136-145) POTASSIUM 3.9 mmol/L (3.5-5.1) CHLORIDE 104 mmol/L (98-107) CARBON DIOXIDE 26 mmol/L (21-32) CALCIUM 9.0 mg/dL (8.5-10.1) TOTAL PROTEIN 6.8 g/dL (6.4-8.2) ALBUMIN 3.5 g/dL (3.3-5.0) BILIRUBIN, TOTAL 0.4 mg/dL (0.0-1.0) ALKALINE PHOSPHATASE 80 U/L (46-116) AST (SGOT) 19 U/L (15-37) ALT (SGPT) 47 U/L (12-78) THYROID STIMULATING HORMONE 1.027 uIU/mL (0.30-3.74) . PROGRESS AND PROCEDURES Course of Care: Patient stable. He says any confusion he had was related to being woken up. His lab is essentially normal. His neuro exam is normal with the exception of his strange affect which his staff anesthesiologist says is his baseline. We'll go ahead and discharge him home. Follow-up as scheduled with his primary care provider. CLINICAL IMPRESSION Changed mental status with confusion. Transient psychosis. INSTRUCTIONS Rest today and tomorrow. Drink plenty of fluids. Warnings: CONTROLLED SUBSTANCE WARNINGS. GENERAL WARNINGS: Return or contact your physician immediately if your condition worsens or changes unexpectedly, if not improving as expected, or if other problems arise. SPECIFICALLY, return if you develop chest pain or fainting. Follow-up: Follow up with your doctor in three days. Call for the next available appointment. Understanding of the discharge instructions verbalized by patient. Discharge instructions reviewed with and understanding was verbalized by manufacturing engineer paint. (Electronically signed by Chiki Gifford, 08/30/2016 23:49)
--- NOTE | 2016-08-30 17:18 | ED NURSING NOTES ---
Clinical Report - Nurses [facility] [address] [place] [address] 08/30/2016 15:20 Patient: AISLINN HANSEN TRIAGE Triage time 15:33. Acuity: LEVEL 4. Chief Complaint: DIZZINESS and VERTIGO and (Pt presents with ataxia, much worse on uneven surfaces. Also c/o increased groggy feeling.). 15:41 08/30/16. DO COMA SCORE: [place] Coma Scale: 15- eyes open spontaneously (4); best verbal response- oriented x 4 (5); best motor response- obeys commands (6). --15:52 Fracisco Verma R.N. 15:57 08/30/16. SEPSIS SCREEN: Sepsis Screen. Negative (no infection suspected/documented). --15:57 Fracisco Verma R.N. 15:54 08/30/16. BP: 129/74. HR: 95. RR: 20. O2 saturation: 97% on room air. Temp: 98.3 F (oral). Pain level now: 0/10. --15:57 Fracisco Verma R.N. Weight: 80.7 kg stated. Height/Length: 72 inches Per Patient. BMI: 24.2. --15:56 Fracisco Verma R.N. Medications Depakote Oral 2000 mg, at bedtime. Neurontin Oral 600 mg, 2x a day. --15:35 Fracisco Verma R.N. Lisinopril Oral 5 mg, daily. --15:36 Fracisco Verma R.N. OLANZapine Oral (Tablet 5 mg) 1 tablet, 2x a day. --15:37 Fracisco Verma R.N. Gabapentin Oral (Tablet 600 mg) 1 tablet, 2x a day. --15:37 Fracisco Verma R.N. MetFORMIN HCl Oral (Tablet 500 mg) 1 tablet, 2x a day. --15:38 Fracisco Verma R.N. Allergies None. --15:35 Fracisco Verma R.N. History Arrived by private vehicle. Historian: patient and family. This started 3 weeks ago. 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 ABUSE ASSESSMENT: No report of abuse. --15:52 Fracisco Verma R.N. SOCIAL HX: Former smoker, end date 1981. History of drug use: marijuana. No alcohol use. --15:57 Fracisco Verma R.N. PROBLEMS: Psychosis. Abrasion(s). Fall. Laceration. Hypertension. Immunizations. Bipolar Disorder. Diabetes Mellitus. --15:38 Fracisco Verma R.N. ADDITIONAL SURGERIES: Eye surgery. Rhinoplasty. --15:38 Fracisco Verma R.N. Interventions To treatment room. --15:52 Fracisco Verma R.N. ID band on patient. --15:57 Fracisco Verma R.N. NURSING PROGRESS NOTES 16:09 08/30/16. Head of bed elevated. Reassurance given. Two patient identifiers checked. Call light placed in reach. Bed placed in lowest position. Brakes of bed on. Patient ready for evaluation- chart flagged. --16:09 Fracisco Verma R.N. 16:10 08/30/16. Finger stick glucose: 158. --16:10 Fracisco Verma R.N. DISPOSITION / DISCHARGE 17:29 08/30/16. Departure time: 1727. Condition at departure: unchanged and stable. No learning barriers present. Discharge instructions provided and reviewed with the patient. Reviewed warnings. Reviewed referrals. Patient verbalized understanding. Written instructions provided in German. The patient was discharged by the physician assistant banquet manager. He was discharged home and accompanied by family. He left the Emergency Department ambulatory and via private vehicle. Family member driving. --17:29 Fracisco Verma R.N. 17:25 08/30/16. BP: 132/78. HR: 95. RR: 20. O2 saturation: 100% on room air. Temp: 98.3 F (oral). Pain level now: 0/10. --17:29 Fracisco Verma R.N. Locked/Released at 08/30/2016 17:29 by Fracisco Verma R.N.
--- NOTE | 2016-08-30 17:18 | ED NURSING NOTES ---
Clinical Report - Nurses [facility] [address] [place] [address] 08/30/2016 15:20 Patient: AISLINN HANSEN TRIAGE Triage time 15:33. Acuity: LEVEL 4. Chief Complaint: DIZZINESS and VERTIGO and (Pt presents with ataxia, much worse on uneven surfaces. Also c/o increased groggy feeling.). 15:41 08/30/16. DO COMA SCORE: [place] Coma Scale: 15- eyes open spontaneously (4); best verbal response- oriented x 4 (5); best motor response- obeys commands (6). --15:52 Fracisco Verma R.N. 15:57 08/30/16. SEPSIS SCREEN: Sepsis Screen. Negative (no infection suspected/documented). --15:57 Fracisco Verma R.N. 15:54 08/30/16. BP: 129/74. HR: 95. RR: 20. O2 saturation: 97% on room air. Temp: 98.3 F (oral). Pain level now: 0/10. --15:57 Fracisco Verma R.N. Weight: 80.7 kg stated. Height/Length: 72 inches Per Patient. BMI: 24.2. --15:56 Fracisco Verma R.N. Medications Depakote Oral 2000 mg, at bedtime. Neurontin Oral 600 mg, 2x a day. --15:35 Fracisco Verma R.N. Lisinopril Oral 5 mg, daily. --15:36 Fracisco Verma R.N. OLANZapine Oral (Tablet 5 mg) 1 tablet, 2x a day. --15:37 Fracisco Verma R.N. Gabapentin Oral (Tablet 600 mg) 1 tablet, 2x a day. --15:37 Fracisco Verma R.N. MetFORMIN HCl Oral (Tablet 500 mg) 1 tablet, 2x a day. --15:38 Fracisco Verma R.N. Allergies None. --15:35 Fracisco Verma R.N. History Arrived by private vehicle. Historian: patient and family. This started 3 weeks ago. 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 ABUSE ASSESSMENT: No report of abuse. --15:52 Fracisco Verma R.N. SOCIAL HX: Former smoker, end date 1981. History of drug use: marijuana. No alcohol use. --15:57 Fracisco Verma R.N. PROBLEMS: Psychosis. Abrasion(s). Fall. Laceration. Hypertension. Immunizations. Bipolar Disorder. Diabetes Mellitus. --15:38 Fracisco Verma R.N. ADDITIONAL SURGERIES: Eye surgery. Rhinoplasty. --15:38 Fracisco Verma R.N. Interventions To treatment room. --15:52 Fracisco Verma R.N. ID band on patient. --15:57 Fracisco Verma R.N. NURSING PROGRESS NOTES 16:09 08/30/16. Head of bed elevated. Reassurance given. Two patient identifiers checked. Call light placed in reach. Bed placed in lowest position. Brakes of bed on. Patient ready for evaluation- chart flagged. --16:09 Fracisco Verma R.N. 16:10 08/30/16. Finger stick glucose: 158. --16:10 Fracisco Verma R.N. DISPOSITION / DISCHARGE 17:29 08/30/16. Departure time: 1727. Condition at departure: unchanged and stable. No learning barriers present. Discharge instructions provided and reviewed with the patient. Reviewed warnings. Reviewed referrals. Patient verbalized understanding. Written instructions provided in Lithuanian. The patient was discharged by the physician clinical data assistant. He was discharged home and accompanied by family. He left the Emergency Department ambulatory and via private vehicle. Family member driving. --17:29 Fracisco Verma R.N. 17:25 08/30/16. BP: 132/78. HR: 95. RR: 20. O2 saturation: 100% on room air. Temp: 98.3 F (oral). Pain level now: 0/10. --17:29 Fracisco Verma R.N. Locked/Released at 08/30/2016 17:29 by Fracisco Verma R.N.
--- NOTE | 2016-08-30 17:18 | ED CLINICAL REPORT ---
Clinical Report - Physicians/Mid Levels [facility] [address] [place] [address] 08/30/2016 15:20 Patient: AISLINN HANSEN Time Seen: 15:34 Aug 30 2016. Arrived- By private vehicle. Historian- patient. HISTORY OF PRESENT ILLNESS Chief Complaint: DIZZINESS. Described as feeling light-headed and a sense of confusion. This started today and is still present but is better now. No nausea, vomiting, hearing loss, tinnitus or ear pain. (Patient sent here for evaluation by his psychologist. Apparently the patient was just discharged froma behavioral health unit. Patient says he was sleeping and was woken upby staff to see a psychologist. Patient says he felt very groggy and was a little bit confused when he saw the psychologist. He says it was simply from lack of sleep. Hesays he's had some issues with confusion and poor balance but this has been evaluated prior and he says it's actually better than its been in the past.). Similar symptoms previously: Several times. Recent medical care: The patient was seen recently at this facility. REVIEW OF SYSTEMS No headache, weakness, chest pain, numbness or sore throat. No cough, difficulty breathing, abdominal pain, diarrhea or difficulty with urination. No skin rash. He has had difficulty walking. All systems otherwise negative, except as recorded above. PAST HISTORY See nurses notes. Hypertension. Diabetes mellitus. No history of heart disease or lung disease. SOCIAL HISTORY Former smoker. History of drug use. No alcohol use. ADDITIONAL NOTES The nursing notes have been reviewed. PHYSICAL EXAM Appearance: Alert. No acute distress. Eyes: Pupils equal, round and reactive to light. No nystagmus. ENT: Normal ENT inspection. TM's normal. Moist mucous membranes. Pharynx normal. Neck: Normal inspection. Neck supple. No meningeal signs. CVS: Normal heart rate and rhythm. Heart sounds normal. Respiratory: No respiratory distress. Breath sounds normal. Back: Normal inspection. Skin: Skin warm and dry. Normal skin color. No rash. Normal skin turgor. Extremities: Extremities exhibit normal ROM. Neuro: Alert. Oriented X 3. Mood/affect normal. Speech normal. Cranial nerves normal (as tested). No cerebellar findings. No motor deficit. No sensory deficit. LABS, X-RAYS, AND EKG Laboratory Tests: UA-Culture if indicated: (SALOMON: 08/30/2016 16:05) ( [facility] [place] 08/30/2016 16:30) Final results Test Result Flag Units (Reference) URINE COLOR YELLOW URINE APPEARANCE CLEAR URINE GLUCOSE NEGATIVE (NEGATIVE) URINE BILIRUBIN NEGATIVE (NEGATIVE) URINE KETONE 1+ (NEGATIVE) URINE SPECIFIC GRAVITY 1.015 (1.010-1.030) URINE PH 7.0 (5.0-8.0) URINE PROTEIN NEGATIVE (NEGATIVE) URINE UROBILINOGEN 0.2 EU/dL (0.2-1.0) URINE NITRITE NEGATIVE (NEGATIVE) URINE BLOOD NEGATIVE (NEGATIVE) URINE LEUK ESTERASE NEGATIVE (NEGATIVE) URINE RBC 0-1 rbc/hpf (0-1) URINE WBC 1-3 wbc/hpf (0-1) URINE EPITHELIAL CELLS 1-3 EPI/hpf (0-5) URINE BACTERIA TRACE (<1+) (NONE SEEN) URINE COMMENT CULT NOT INDICATED URINE CULTURES ARE SET-UP BASED ON THE FOLLOWING CRITERIA:POSITIVE NITRITEPOSITIVE LEUKOCYTE ESTERASEGREATER THAN 10 WHITE BLOOD CELLSMODERATE (2+) OR GREATER BACTERIA CBC w Diff: (SALOMON: 08/30/2016 16:20) ( [facility] [place] 08/30/2016 16:45) Final results Test Result Flag Units (Reference) WHITE BLOOD COUNT 5.5 K/uL (4.5-11.5) RED BLOOD COUNT 4.43 L M/uL (4.50-5.90) HEMOGLOBIN 13.4 L gm/dL (13.5-17.5) HEMATOCRIT 39.3 L % (41.0-53.0) MEAN CELL VOLUME 89 fL (80-100) MEAN CORPUSCULAR HGB 30 pg (26-34) MEAN CORPUSCULAR HGB CONC 34 g/dL (31-37) RED CELL DISTRIBUTION WIDTH 13.2 % (11.6-14.8) PLATELET COUNT 144 L K/uL (150-400) NEUTROPHIL % 50.2 % (50-75) LYMPH % 37.3 % (25-40) MONO % 9.4 % (3-14) EOSINOPHIL % 2.7 % (0-4) BASOPHIL % 0.4 % (0-2) Urine Drug Screen: (SALOMON: 08/30/2016 16:05) ( MsgRcvd 08/30/2016 16:31) Final results Test Result Flag Units (Reference) AMPHETAMINE/METHAMPHETAMINE NEGATIVE (NEGATIVE) BARBITURATE NEGATIVE (NEGATIVE) BENZODIAZEPINE NEGATIVE (NEGATIVE) CANNABINOID NEGATIVE (NEGATIVE) COCAINE NEGATIVE (NEGATIVE) ECSTASY NEGATIVE (NEGATIVE) METHADONE NEGATIVE (NEGATIVE) OPIATE NEGATIVE (NEGATIVE) The urine drug screen is a qualitative screening test fordrug overdose and abuse. All screen results should beconsidered as presumptive.Drugs screened for are as follows:BenzodiazepinesCocaineAmphetamines/MetamphetaminesTHC (Tetrahydrocannabinol)OpiatesBarbituratesEcstasyMethadonePositive results are unconfirmed. For confirmation, notifythe lab for the specimen to be sent to the reference lab.All confirmations must be performed by a differentmethodology.The ingestion of natural herbal and plant productscontaining Ephedra/Ephedra metabolites can produce in urineone or more substances capable of cross reacting withamphetamine/methamphetamine immunoassays. These testsprovide a preliminary result only. A more specificalternative chemical method must be used to obtain aconfirmed analytical result. CMP: (SALOMON: 08/30/2016 16:20) ( MsgRcvd 08/30/2016 17:02) Final results Test Result Flag Units (Reference) GLUCOSE 170 H mg/dL (70-110) BUN 18 mg/dL (7-18) CREATININE 0.8 mg/dL (0.6-1.3) Estimated GFR >60 mL/min Estimated GFR- >60 mL/min Note: Persistent reduction over 3 months in eGFR<60 mL/min/1.73 m2 defines CKD. Patients with eGFR values>=60 mL/min/1.73 m2 may also have CKD if evidence ofpersistent proteinuria. Additional information may be foundat www.kidney.org. SODIUM 140 mmol/L (136-145) POTASSIUM 3.9 mmol/L (3.5-5.1) CHLORIDE 104 mmol/L (98-107) CARBON DIOXIDE 26 mmol/L (21-32) CALCIUM 9.0 mg/dL (8.5-10.1) TOTAL PROTEIN 6.8 g/dL (6.4-8.2) ALBUMIN 3.5 g/dL (3.3-5.0) BILIRUBIN, TOTAL 0.4 mg/dL (0.0-1.0) ALKALINE PHOSPHATASE 80 U/L (46-116) AST (SGOT) 19 U/L (15-37) ALT (SGPT) 47 U/L (12-78) THYROID STIMULATING HORMONE 1.027 uIU/mL (0.30-3.74) . PROGRESS AND PROCEDURES Course of Care: Patient stable. He says any confusion he had was related to being woken up. His lab is essentially normal. His neuro exam is normal with the exception of his strange affect which his patient care assistant says is his baseline. We'll go ahead and discharge him home. Follow-up as scheduled with his primary care provider. CLINICAL IMPRESSION Changed mental status with confusion. Transient psychosis. INSTRUCTIONS Rest today and tomorrow. Drink plenty of fluids. Warnings: CONTROLLED SUBSTANCE WARNINGS. GENERAL WARNINGS: Return or contact your physician immediately if your condition worsens or changes unexpectedly, if not improving as expected, or if other problems arise. SPECIFICALLY, return if you develop chest pain or fainting. Follow-up: Follow up with your doctor in three days. Call for the next available appointment. Understanding of the discharge instructions verbalized by patient. Discharge instructions reviewed with and understanding was verbalized by car seat maker. (Electronically signed by Chiki Gifford, 08/30/2016 23:49)
--- NOTE | 2016-08-30 17:18 | ED ORDER SUMMARY ---
..... Patient: AISLINN HANSEN OrderSheet [facility] VisitID: [id number] [address] [place] [address] 60y, M Registration Date/Time: 08/30/2016 ORDER SHEET Weight: 80.7 kg (stated) Allergies: None GENERAL ORDERS: CBC w Diff Urgent (15:53 08/30/2016 JCoates) (Ack 15:59 LTapper) (17:19 JSimbeck R.N.) CMP Urgent (15:53 08/30/2016 JCoates) (Ack 15:59 LTapper) (17:19 JSimbeck R.N.) UA-Culture if indicated Urgent (15:53 08/30/2016 JCoates) (Ack 15:59 LTapper) (16:10 JSimbeck R.N.) Urine Drug Screen Urgent (15:53 08/30/2016 JCoates) (Ack 15:59 LTapper) (16:10 JSimbeck R.N.) TSH Urgent (15:53 08/30/2016 JCoates) (Ack 15:59 LTapper) (17:19 JSimbeck R.N.) POC Glucose (16:01 08/30/2016 JSimbeck R.N. verbal order read back to JCoates) (16:11 JSimbeck R.N.) MEDICATION ORDERS: IV FLUIDS: ORDER SHEET NOTES: [Electronically signed by Fracisco Verma R.N. (17:29 08/30/2016)] [Electronically signed by Chiki Gifford (23:49 08/30/2016)] [Electronically locked/signed by Fracisco Verma R.N. (17:29 08/30/2016)]
--- NOTE | 2016-08-30 23:49 | ED MAR SUMMARY ---
..... Medication Administration Record [facility] [address], [place] [id number] Patient: AISLINN HANSEN Visit ID: [id number] 60y, M Weight: 80.7 kg Height/Length: 72 in BMI: 24.2 ALLERGIES: None
--- NOTE | 2016-08-30 23:49 | ED MED RECONCILIATION SUMMARY ---
Patient: AISLINN HANSEN Medication Reconciliation Report [facility] VisitID: [id number] [address] [place] [address] 60y, M Registration Date/Time: 08/30/2016 Weight: 80.7 kg Height/Length: 72 in. BMI: 24.2 ALLERGIES: None The patient's Home Medications are listed below: THE FOLLOWING MEDICATIONS NEED TO BE RECONCILED: Depakote Oral 2000 mg, at bedtime Gabapentin Oral (600 mg) 1 tablet, 2x a day Lisinopril Oral 5 mg, daily MetFORMIN HCl Oral (500 mg) 1 tablet, 2x a day Neurontin Oral 600 mg, 2x a day OLANZapine Oral (5 mg) 1 tablet, 2x a day The source(s) of the original Home Medication information: Not obtained. The following Medications were given to the patient in the Emergency Department: None. The following Medications were prescribed to the patient: None.
--- NOTE | 2016-08-30 23:49 | ED MAR SUMMARY ---
..... Medication Administration Record [facility] [address], [place] [id number] Patient: AISLINN HANSEN Visit ID: [id number] 60y, M Weight: 80.7 kg Height/Length: 72 in BMI: 24.2 ALLERGIES: None
--- NOTE | 2016-08-30 23:49 | ED MED RECONCILIATION SUMMARY ---
Patient: AISLINN HANSEN Medication Reconciliation Report [facility] VisitID: [id number] [address] [place] [address] 60y, M Registration Date/Time: 08/30/2016 Weight: 80.7 kg Height/Length: 72 in. BMI: 24.2 ALLERGIES: None The patient's Home Medications are listed below: THE FOLLOWING MEDICATIONS NEED TO BE RECONCILED: Depakote Oral 2000 mg, at bedtime Gabapentin Oral (600 mg) 1 tablet, 2x a day Lisinopril Oral 5 mg, daily MetFORMIN HCl Oral (500 mg) 1 tablet, 2x a day Neurontin Oral 600 mg, 2x a day OLANZapine Oral (5 mg) 1 tablet, 2x a day The source(s) of the original Home Medication information: Not obtained. The following Medications were given to the patient in the Emergency Department: None. The following Medications were prescribed to the patient: None.
--- NOTE | 2016-08-30 23:49 | ED DISCHARGE INSTRUCTIONS ---
Patient: AISLINN HANSEN General Instructions [facility] VisitID: [id number] [address] [place] [address] 60y, M Registration Date/Time: 08/30/2016 Changed mental status with confusion. Transient psychosis. INSTRUCTIONS Rest today and tomorrow. Drink plenty of fluids. Warnings: CONTROLLED SUBSTANCE WARNINGS. GENERAL WARNINGS: Return or contact your physician immediately if your condition worsens or changes unexpectedly, if not improving as expected, or if other problems arise. SPECIFICALLY, return if you develop chest pain or fainting. Follow-up: Follow up with your doctor in three days. Call for the next available appointment. Understanding of the discharge instructions verbalized by patient. Discharge instructions reviewed with and understanding was verbalized by agriculture intern. ADDITIONAL INFORMATION Confusion Confusion is a change in a persons ability to think clearly. There may be trouble recognizing familiar people and places, or knowing what day it is. Memory, judgement and decision-making may also be affected. In severe cases there may be limited or no response to verbal commands. Confusion may occur suddenly or develop gradually over time. There are many injuries and medical conditions that can cause this problem. These include brain injury, side effect of medication, intoxication, withdrawal from drugs, infection, stroke, dementia,mental illness and other causes. The exam and testing today did not show the cause of this problem. Further testing will be needed. Specific treatment and hope for recovery depend on the cause of this symptom. Home Care: Be sure someone is with the confused person at all times. He/she should not be left alone or unsupervised. Keep medicines (prescription and [id number]) in a secure place, under the caregivers control. A person with confusion should not be allowed to take their own medicines.This needs to be supervised by the caregiver. Ways to help a person with confusion: Activities:Establish a daily routine. Change can be a source of stress for someone with confusion. Make a time schedule for common tasks such as: bathing, dressing, taking medicines, meals, going for walks, shopping, naps and bed time. Communication:Speak slowly and clearly with a gentle tone of voice. Use short simple words and sentences. Ask one question at a time. Do not interrupt, criticize or argue. Be calm and supportive. Use friendly facial expressions. Use pointing and touching to help communicate. If there has been loss of long-term memory, do not ask questions about past events. This would only cause frustration for the person. Behavioral tips:Use lists, signs, family photos, clocks and calendars as memory aids. Label cabinets and drawers. Try to distract, not confront, the patient. When he/she becomes frustrated or upset, redirect his/her attention to eating or some other activity of interest. Medical-Legal tips: If this proves to be a permanent condition, talk to your doctor and/or ruby on rails web developer about getting a Power of Respiratory Manager for health care and for financial decisions. It is best to do this while the person can still sign legal documents and make his/milton own legal decisions. Otherwise, a court order will be required. Follow-Up with the patients doctor or as advised by our staff for further testing. Get Prompt Medical Attention if any of the following occur: Frequent falling Refusal to eat or drink Violent behavior or behavior becomes too difficult to manage at home Increased drowsiness, or failure to respond normally Increasing headache, nausea or repeated vomiting Numbness or weakness of the face, one arm or one leg Slurred speech, trouble speaking, walking or seeing Fainting spell, dizziness or seizure Unexplained fever over 100.4 F (38.0 C) oral You have been given the following additional information: Confusion Rest today and tomorrow. (Electronically signed by Chiki Gifford, 08/30/2016 23:49)
--- NOTE | 2016-08-30 23:49 | ED DISCHARGE INSTRUCTIONS ---
Patient: AISLINN HANSEN General Instructions [facility] VisitID: [id number] [address] [place] [address] 60y, M Registration Date/Time: 08/30/2016 Changed mental status with confusion. Transient psychosis. INSTRUCTIONS Rest today and tomorrow. Drink plenty of fluids. Warnings: CONTROLLED SUBSTANCE WARNINGS. GENERAL WARNINGS: Return or contact your physician immediately if your condition worsens or changes unexpectedly, if not improving as expected, or if other problems arise. SPECIFICALLY, return if you develop chest pain or fainting. Follow-up: Follow up with your doctor in three days. Call for the next available appointment. Understanding of the discharge instructions verbalized by patient. Discharge instructions reviewed with and understanding was verbalized by business area director. ADDITIONAL INFORMATION Confusion Confusion is a change in a persons ability to think clearly. There may be trouble recognizing familiar people and places, or knowing what day it is. Memory, judgement and decision-making may also be affected. In severe cases there may be limited or no response to verbal commands. Confusion may occur suddenly or develop gradually over time. There are many injuries and medical conditions that can cause this problem. These include brain injury, side effect of medication, intoxication, withdrawal from drugs, infection, stroke, dementia,mental illness and other causes. The exam and testing today did not show the cause of this problem. Further testing will be needed. Specific treatment and hope for recovery depend on the cause of this symptom. Home Care: Be sure someone is with the confused person at all times. He/she should not be left alone or unsupervised. Keep medicines (prescription and [id number]) in a secure place, under the caregivers control. A person with confusion should not be allowed to take their own medicines.This needs to be supervised by the caregiver. Ways to help a person with confusion: Activities:Establish a daily routine. Change can be a source of stress for someone with confusion. Make a time schedule for common tasks such as: bathing, dressing, taking medicines, meals, going for walks, shopping, naps and bed time. Communication:Speak slowly and clearly with a gentle tone of voice. Use short simple words and sentences. Ask one question at a time. Do not interrupt, criticize or argue. Be calm and supportive. Use friendly facial expressions. Use pointing and touching to help communicate. If there has been loss of long-term memory, do not ask questions about past events. This would only cause frustration for the person. Behavioral tips:Use lists, signs, family photos, clocks and calendars as memory aids. Label cabinets and drawers. Try to distract, not confront, the patient. When he/she becomes frustrated or upset, redirect his/her attention to eating or some other activity of interest. Medical-Legal tips: If this proves to be a permanent condition, talk to your doctor and/or air crew member about getting a Power of Electrical Calibrator for health care and for financial decisions. It is best to do this while the person can still sign legal documents and make his/milton own legal decisions. Otherwise, a court order will be required. Follow-Up with the patients doctor or as advised by our staff for further testing. Get Prompt Medical Attention if any of the following occur: Frequent falling Refusal to eat or drink Violent behavior or behavior becomes too difficult to manage at home Increased drowsiness, or failure to respond normally Increasing headache, nausea or repeated vomiting Numbness or weakness of the face, one arm or one leg Slurred speech, trouble speaking, walking or seeing Fainting spell, dizziness or seizure Unexplained fever over 100.4 F (38.0 C) oral You have been given the following additional information: Confusion Rest today and tomorrow. (Electronically signed by Chiki Gifford, 08/30/2016 23:49)
== END 2016-08-30 17:27 | disposition home or self-care (01) ==
LOC: ED SRH 15:20
DX: R41.82 Altered mental status, unspecified (principal); F23 Brief psychotic disorder; E11.9 Type 2 diabetes mellitus without complications; I10 Essential (primary) hypertension; Z79.899 Other long term (current) drug therapy; Z79.84 Long term (current) use of oral hypoglycemic drugs
CPT/HCPCS: 90004; 90074; 90098; 90100; 92760; 92761; 92762; 92763; 92764; 92765; 92766; 92767; 93140; 95059

== ENCOUNTER 2016-11-07 12:58 | Outpatient (CLI) | payer OTHER | END 2016-11-07 23:00 | LOC: LAB SRH 12:58 | DX: Z79.899 Other long term (current) drug therapy (principal) | CPT/HCPCS: 90074; 91285; 92710; 95059 ==

== ENCOUNTER 2016-12-05 14:52 | Outpatient (CLI) | payer OTHER | END 2016-12-05 23:00 | LOC: LAB SRH 14:52 | DX: E13.620 Other specified diabetes mellitus with diabetic dermatitis (principal); I10 Essential (primary) hypertension; E78.9 Disorder of lipoprotein metabolism, unspecified; R97.20 Elevated prostate specific antigen [PSA] | CPT/HCPCS: 90074; 90100; 91046; 91286; 92690 ==